=== PATIENT | female | born 1985 | race Caucasian/White ===

== ENCOUNTER 2020-05-08 12:21 | Outpatient (REF) | payer SELFPAY | END 2020-05-08 12:22 | disposition home or self-care (01) | LOC: HO.LAB 12:21 | PROVIDERS: PCP Internal Medicine; Visit Provider Internal Medicine | DX: Z20.828 Contact with and (suspected) exposure to other viral communicable diseases (principal) | CPT/HCPCS: C9803; U0003 ==

== ENCOUNTER 2022-07-31 10:55 | Outpatient (REF) | payer OTHER, SELFPAY ==
[2022-07-31 14:06] LABS: Hematocrit 40.2 % (37.0-47.0); Mean Corpuscular HGB Conc 32.3 g/dl (31.0-35.0); Mean Corpuscular Hemoglobin 25.2 pg (27.0-33.0); Mean Corpuscular Volume 78.1 fL (80.0-98.0); Mean Platelet Volume 8.9 fL (9.4-12.3); Platelet Count 289 X10*3/uL (160-400); Red Blood Count 5.15 X10*6/uL (4.20-5.50); Red Cell Distribution Width 13.4 % (11.0-16.0); White Blood Count 7.2 X10*3/uL (4.8-10.8)
[2022-07-31 14:37] LABS: Alanine Aminotransferase 27 U/L (0-31); Albumin Level 3.9 g/dL (3.5-5.0); Alkaline Phosphatase 86 U/L (39-117); Anion Gap 13 (12-20); Aspartate Amino Transferase 19 U/L (5-31); Bilirubin Total 0.5 mg/dL (0.0-1.0); Blood Urea Nitrogen 10 mg/dL (9-16); Calcium 8.8 mg/dL (8.4-10.2); Carbon Dioxide 25 mmol/L (22-29); Chloride 108 mmol/L (96-108); Cholesterol 182 mg/dL; Estimated Glomerular Filt Rate > 60; Glucose Fasting 98 mg/dL (60-99); HDL Cholesterol 39 mg/dL; LDL Cholesterol Calculated 129 mg/dl; Potassium 4.6 mmol/L (3.3-5.1); Sodium 141 mmol/L (135-145); Total Protein 6.5 g/dL (6.5-8.0); Triglycerides 74 mg/dL
[2022-07-31 14:55] LABS: TSH reflex Free T4 1.14 uIU/mL (0.32-4.0)
== END 2022-07-31 10:56 | disposition home or self-care (01) ==
LOC: HO.WFDLDS 10:55
PROVIDERS: Visit Provider Hospitalist
DX: Z00.00 Encounter for general adult medical examination without abnormal findings (principal); E66.01 Morbid (severe) obesity due to excess calories; R03.0 Elevated blood-pressure reading, without diagnosis of hypertension
CPT/HCPCS: 36415; 80053; 80061; 84443; 85027

== ENCOUNTER 2023-02-06 15:58 | Outpatient (AMB) | payer OTHER, SELFPAY ==
[2023-02-06 16:06] VITALS: BP 114/60; PULSE 86; RESP 12; TEMP 36.4; O2SAT 99; BMI 41.9
--- NOTE | 2023-02-06 16:06 | A.OFFPC_ITS ---
Vital Signs 02/06/23 16:06 Height 5 ft 6 in Weight 259 lb 6 oz BMI 41.9 BP 114/60 Blood Pressure Location Rt brachial Position Sitting Respiration 12 Pulse 86 Pulse Source Pulse Oximeter Temp 97.5 F Temp Source Temporal Artery Scan Pulse Oximetry (%) 99 Oxygen Delivery Method Room Air Intake Visit Reasons: f/u for concerns, per Mitzi Cazares Intake Note: Patient is here for a follow up for concerns. Patient was last seen by Mitzi Cazares in July of 2022. Patient states that this follow-up is for an extensive exam. Patient states that she would like to check her thyroid due to thyroid disease running in family and her assuming she may have some symptoms for the disease as well. Patient states she been fatigued, its been harder for her to lose weight now, patient states that she also feels like there is a lump in her throat and sometimes has difficulties swallowing. Patient states she has been experiencing pain in her low abdomen and it been going on for a month. Patient states it almost feels like pressure. Accordion Tuner Required: No Accompanied by: Self / Same As Patient Allergies No Known Allergies [No Known Allergies*] Allergy (Verified 02/06/23 16:27) Medication List - Last Reconciled 02/06/23 by Jadon Redding CNP No Known Home Meds Tobacco use date assessed: 02/06/23 Dental Screening Dental Screen Date: 02/06/23 Did you have a dental visit in the last 12 months?: Yes Did you have a dental problem in the last 6 months where you did not have access to dental care?: No Was dental information given to patient?: Patient has dentist HPI HPI Comments History of Present Illness Details 37-year-old female presents c/o fatigue and abdominal pain. She reports fatigue for the past several months and difficulty losing weight. She states she has been exercising at the gym daily for the past 2 months and has not lose weight. She reports family history of thyroid disease on her mother's side and request thyroid labs. She also reports intermittent daily lower abdominal pain with associated soft to watery stool for the past 1 month. She describes the pain as pressure. No constipation, no fever, chills, or body aches. She admits to eating healthy, including fruits, vegetables, and fiber. She states she is sexually active, in a monogamous relationship, and practices safe sex. She denies feeling anxious or depressed. [facility] Medical History (Updated 02/06/23 @ 16:58 by Jadon Redding CNP) No pertinent past medical history Surgical History H/O removal of cyst History of cholecystectomy Family History Maternal Grandmother Thyroid disorder Brother Thyroid disorder Maternal Aunt Thyroid disorder Maternal Aunt Thyroid disorder Maternal Aunt Thyroid disorder Social History Housing: House Alcohol intake: current Patient Tobacco Use Status: Never used Tobacco e-Cigarette/Vaping Use: Never Used Current occupational status: employed Current occupation: [employer] [place] Cognitive needs: No Hearing needs: No Vision needs: No Questionnaire Thrive Questionnaire Date Thrive assessed: 07/31/22 Review of Systems Const Details: Const Denies chills, Reports fatigue, Denies fever(s), Denies headache(s) and Denies weakness ENT Denies dizziness and Denies headache(s) Card Denies chest pain, Denies lightheadedness, Denies dyspnea and Denies other (Palpitations) Resp Denies cough, Denies dyspnea, Denies wheezing and Denies other ( shortness of breath) GI Reports abdominal pain, Denies melena, Denies hematochezia, Reports in bowel habits, Denies dyspepsia, Denies nausea, and Denies vomiting Denies hematuria and Denies dysuria Musc Denies abnormal gait, Denies myalgias, Denies arthralgias, Denies numbness and Denies tingling Skin/Breast Denies rash, Denies unusual bruising and Denies wounds Neuro Denies abnormal gait, Denies dizziness, Denies headache(s), Denies memory loss, Denies numbness, Denies Sensory deficit (Neuro), Denies tingling and Denies weakness Psych Denies anxiety, Denies depression, Denies memory loss Endo Denies cold intolerance, Reports fatigue, Denies heat intolerance, Denies polydipsia and Denies polyuria Aller/Immun Denies wheezing Physical exam (Primary Care) Vital Signs: Last Vital Signs Temp 97.5 F 02/06/23 16:06 Pulse 86 02/06/23 16:06 Resp 12 02/06/23 16:06 BP 114/60 02/06/23 16:06 Pulse Ox 99 02/06/23 16:06 Oxygen Delivery Method Room Air 02/06/23 16:06 BMI result Body Mass Index 41.9 Tobacco/Smoking Status: Tobacco use Status Tobacco use date assessed 02/06/23 02/06/23 16:18 Patient Tobacco Use Status Never used Tobacco 02/06/23 16:06 e-Cigarette/Vaping Use Never Used 02/06/23 16:06 Thrive Assessment: Date of Thrive Assessment Date Thrive assessed 07/31/22 02/06/23 16:06 Const Other: General: no acute distress and well developed Nutritional Appearance: well nourished Orientation/consciousness: patient oriented x3 HENMT Head: Yes normocephalic and Yes atraumatic Eyes General: appearance normal, both eyes and all related structures Pupils: Equal, round and reactive pupils present EOM: EOMs intact bilaterally Resp Effort & Inspection: normal respiratory effort Auscultation: clear to auscultation bilaterally Cardio Rate: regular rate Rhythm: regular rhythm Heart sounds: S1 normal heart sound present, S2 normal heart sound present, no gallops, no murmurs and no rubs GI Palpation (GI): No Abdominal aortic bruit present, Soft to palpation, tenderness to lower abdomen and suprapubic region, No hepatosplenomegaly present and No Rebound tenderness present Auscultation: normal bowel sounds General: Yes no CVA tenderness Back/Spine/Pelvis Back: no CVA tenderness Cervical Spine: cervical ROM normal and No Cervical spine tenderness Thoracic/Lumbar Spine: thoraco-lumbar ROM normal, No pain with thoraco-lumbar ROM, No thoracic spinal tenderness and No lumbar spinal tenderness Extrem General: Yes normal to inspection, No edema and No calf tenderness Skin General: warm and dry. Normal skin color. Normal skin turgor Lesions: no lesions Rashes: no rashes Trauma: no lacerations or abrasions Wounds: no wounds Nails: normal Neuro General: patient oriented x3, gait normal and no focal neuro deficit Cranial nerves: Yes Equal, round and reactive pupils present Cognition (Neuro): normal cognition Gait exam (Neuro): Normal gait present Sensory Exam: No Sensory deficit (Neuro) Psych Appearance: grossly normal Affect: normal affect Attitude: cooperative Thought process: Normal thought process present Assessment and Plan Assessment & Plan (1) Fatigue: Code(s): R53.83 - Other fatigue Plan: She reports fatigue for the past several months and been unable to lose weight She denies depression and anxiety Will check CBC, TSH, and electrolytes level Will review lab results and make changes to her care plan if warranted Routine exercise encouraged Follow-up with worsening or new symptoms Verbalized understanding and agreed with treatment plan. (2) Abdominal pain: Code(s): R10.9 - Unspecified abdominal pain Plan: Reports intermittent daily lower abdominal pain with associated soft to watery stool for the past 1 month. She describes the pain as pressure. No constipation, no fever, chills, or body aches. She admits to eating healthy. Tenderness to lower abdomen and suprapubic region May be related to diet such as lactose, stress, or IBS Metamucil ordered. Take as prescribed Referred to GI Urinalysis ordered to rule out UTI Return with worsening or new symptoms Verbalized understanding and agreed with treatment plan. (3) Diarrhea: Code(s): R19.7 - Diarrhea, unspecified Plan: As above (4) Morbid obesity: Code(s): E66.01 - Morbid (severe) obesity due to excess calories Plan: She currently weighs 259 lb, BMI is 41.9 She states she has been unable to lose weight despite exercising and eating healthy Referred to dietitian/nutrition and weight management Routine exercise and healthy diet encouraged Return with symptoms or concerns Verbalized understanding and agreed with treatment plan. Orders: Orders TSH reflex Free T4 Today R10.9 - Unspecified abdominal pain, R53.83 - Other fatigue UA CC w/rflx Micro + Cult Today R10.9 - Unspecified abdominal pain, R53.83 - Other fatigue Complete Blood Count Auto Diff Today R10.9 - Unspecified abdominal pain, R53.83 - Other fatigue Comprehensive [place]. Panel Fast Today R10.9 - Unspecified abdominal pain, R53.83 - Other fatigue Vitamin D 25-OH Total Today R10.9 - Unspecified abdominal pain, R53.83 - Other fatigue Referrals Medical Weight Management Referral E66.01 - Morbid (severe) obesity due to excess calories Apartment Coordinator Nutrition Referral E66.01 - Morbid (severe) obesity due to excess calories Gastroenterology Referral R10.9 - Unspecified abdominal pain, R19.7 - Diarrhea, unspecified Medications: New psyllium husk (Metamucil) mix into at least 8 oz of water or juice before administering 1 tbsp PO DAILY 660 grams 0RF Coding Level of Care Code Est Pt Level 3 (05219) Diagnoses Fatigue R53.83 Abdominal pain R10.9 Diarrhea R19.7 Morbid obesity E66.01
== END 2023-02-06 16:55 ==
PROVIDERS: PCP Nurse Practitioner Family; Visit Provider Nurse Practitioner Family
DX: R10.9 Unspecified abdominal pain (principal); R53.83 Other fatigue; E66.01 Morbid (severe) obesity due to excess calories; Z68.41 Body mass index [BMI] 40.0-44.9, adult; R19.7 Diarrhea, unspecified
CPT/HCPCS: 99213

== ENCOUNTER 2023-02-10 17:49 | Emergency (ER) | payer OTHER, SELFPAY ==
--- NOTE | ~2023-02-10 | XR_ITS ---
EXAMINATION: XR SOFT TISSUE NECK CLINICAL INDICATION: Foreign body sensation in throat. COMPARISON: None available. TECHNIQUE: 2 views of the soft tissue neck were obtained. FINDINGS: Soft tissue films of the neck demonstrate a normal larynx, pharynx and upper trachea. No soft tissue swelling or opaque foreign body is demonstrated. XR/XR soft tissue neck IMPRESSION: Unremarkable examination.
[2023-02-10 18:48] VITALS: BP 140/100; PULSE 65; RESP 18; TEMP 36.5; O2SAT 99; BMI 41.2
--- NOTE | 2023-02-10 18:51 | ED_ITS ---
HPI - General Adult General Chief complaint: General Medical Stated complaint: ?Lump in throat Time Seen by Provider: 02/10/23 20:08 Source: patient Mode of arrival: ambulatory Limitations: no limitations History of Present Illness HPI narrative: 37-year-old female presents to the ED for chronic sensation of lump in throat after swallowing food and drinking liquids. Patieint feels like she is having incomplete digesstion or swallowing. patient feels like food is regurging. Patient denies any neck swelling, fever, chills, mass on neck, weight loss, or night sweats. Patient denies any abdominal pain, chest pain, shortness of breath, nausea, vomiting, drooling, change in voice, weight loss, or weight gain. Related Data Previous Rx's Medication Instructions Recorded psyllium husk 3.4 gram/5.4 gram 1 tbsp PO DAILY #660 grams 02/06/23 oral powder (Metamucil) Allergies Allergy/AdvReac Type Severity Reaction Status Date / Time No Known Allergies Allergy Verified 02/10/23 18:47 [No Known Allergies*] Review of Systems Review of Systems: Lump in throat for 7 months Yes all other systems are reviewed and are negative [facility] Past Medical History Medical History (Updated 02/11/23 @ 11:06 by Jadon Redding CNP) No pertinent past medical history Surgical History H/O removal of cyst History of cholecystectomy Family History Family History Maternal Grandmother Thyroid disorder Brother Thyroid disorder Maternal Aunt Thyroid disorder Maternal Aunt Thyroid disorder Maternal Aunt Thyroid disorder Social History Social History Housing: House Alcohol intake: current Patient Tobacco Use Status: Never used Tobacco e-Cigarette/Vaping Use: Never Used Current occupational status: employed Current occupation: [employer] [place] Cognitive needs: No Hearing needs: No Vision needs: No Physical Exam ED Vital Signs: Vital Signs - 24 hr 02/10/23 18:48 Temperature 97.7 F Pulse Rate 65 Respiratory Rate 18 Blood Pressure 140/100 H Pulse Oximetry 99 Oxygen Delivery Method Room Air BMI result Body Mass Index 41.2 Const General: cooperative, healthy appearing, comfortable, no acute distress, well developed, alert, awake and Physically active Orientation/consciousness: oriented to person, oriented to place and patient oriented x3 HENNJ Head: Yes normal to inspection, Yes No palpable skull fracture present, Yes normocephalic and Yes atraumatic Throat: Yes posterior oropharynx normal, Yes tonsils normal and Yes uvula midline Eyes Other: Negative for drooling. Negative for neck swelling. Negative for lymphadenopathy. Negative for supraclavicular mass or umbilical mass. General: appearance normal, both eyes and all related structures Neck Other: Negative for any neck swelling. Neck: Yes normal visual inspection, Yes full ROM, Yes no lymphadenopathy, Yes no meningeal signs, Yes trachea midline, Yes supple, No anterior neck swelling and No tender Chest Chest palpation & inspection: normal inspection of the chest and normal palpation of entire chest wall Resp Effort & Inspection: normal respiratory effort and able to speak in complete sentences Auscultation: clear to auscultation bilaterally Cardio Jugular venous distension: no JVD Heart sounds: S1 normal heart sound present and S2 normal heart sound present GI Inspection: Yes normal to inspection Palpation (GI): Soft to palpation, not firm, nontender, no guarding and not rigid General: No CVA tenderness and Yes no CVA tenderness Back/Spine/Pelvis Back: no CVA tenderness, No CVA tenderness and No back tenderness Skin General skin exam: no rashes or lesions noted, elasticity normal and turgor normal Neuro General: oriented to person, oriented to place, patient oriented x3, gait normal, tone normal, moves all extremities, Normal light touch and pain sensation, no meningeal signs, no focal motor deficits, CN's II-XI intact bilaterally and normal sensation to monofilament Extrem General: Yes normal to inspection and Yes full ROM Psych Appearance: grossly normal, well kempt and not disheveled Course Course Course Narrative: This is an RME: Additional HPI, ROS, PE not included below will be deferred to primary provider. 37-year-old female presents with difficulty swallowing solids and liquids, started to swell solids, this is been going on for months. Seen by PCP who reassured her that she was fine however did not do any imaging. Medical Decision Making Medical Decision Making MDM Narrative: 37-year-old female presents to ED for sensation of lump in throat after eating and so/swallowing food/liquids for at least 6 months. Patient denies any drooling, change in voice, chest pain, shortness of breath, mass on neck, weight loss, fever, chills, chest pain, shortness of breath, abdominal pain, nausea, vomiting, or night sweats. Patient denies any weight loss. Physical exam n egative for cervical or other lymphadenopathy. Patient speaking in full sentences and negative for drooling, change in voice, choking, nausea, vomiting. Negative for signs of food bolus. Sounds like indigestion or patient may have some esophageal motility issues. Patient was explained signs of esophageal motility issues and told to follow-up with gastroenterology. Patient also perform a follow-up with ENT. PIT provider ordered soft-tissue next x-ray which was more Differential Diagnosis Differential Diagnoses: The differential diagnosis associated with the presentation includes (GERD, esophageal motility issues, achalasia, food bolus, ) External Record Review External record reviewed: Outpatient record and Other (Prior visit) Tests considered The following testing was considered but not selected: CT scan Discharge Plan Discharge Clinical Impression: Indigestion, Sore throat Patient Disposition: Home, Self-Care Instructions: Pharyngitis (ED), Indigestion (ED) Additional Instructions: History indicates possible esophageal issues. You will need to follow-up with extruder operator for further re-evaluation. Also you need to follow-up with ENT for any possible larynx issues. Return to the ED immediately for any drooling, change in voice, chest pain, shortness of breath, neck swelling, mass or neck, weight loss, night sweats, fever, chills, inability tolerate solid food/liquid, or any other concerning symptoms. Prescriptions: No Action Metamucil 3.4 gram/5.4 gram powder 1 tbsp PO DAILY Qty: 660 0RF Rx Instructions: mix into at least 8 oz of water or juice before administering Referrals: [facility] [place] Gastro[facility]ology Services [Provider Group] (Indigestion. Possible esophageal motility issues.) Juventino Ramirez [Physician] - (Chronic throat issue for 6 months) Interventions: ED Discharge Assessment Last Done: 02/10/23 21:24 Discharge Date/Time: 02/10/23 21:25 Print Language: Tristanian
== END 2023-02-10 21:25 | disposition home or self-care (01) ==
PROVIDERS: Emergency Provider Emergency Medicine; PCP Nurse Practitioner Family
DX: J02.9 Acute pharyngitis, unspecified (principal); K30 Functional dyspepsia; E66.9 Obesity, unspecified; Z68.41 Body mass index [BMI] 40.0-44.9, adult
CPT/HCPCS: 70360; 99282; 99283

== ENCOUNTER 2023-02-11 08:49 | Outpatient (REF) | payer OTHER, SELFPAY ==
[2023-02-11 10:21] LABS: MANUAL DIFF FLAG NO
[2023-02-11 10:25] LABS: Basophils Percent Auto 0.4 % (0-2); Eosinophils Absolute Auto 0.1 X10*3/uL (0.0-0.4); Eosinophils Percent Auto 2.3 % (0-4); Hematocrit 41.6 % (37.0-47.0); Hemoglobin 13.4 g/dl (12.0-16.0); Imm Gran Abs Auto 0.02 X10*3/uL (0.00-0.03); Imm Gran Pct Auto 0.4 % (0.0-0.4); Lymphocytes Absolute Auto 1.9 X10*3/uL (1.2-4.9); Lymphocytes Percent Auto 33.9 % (20-40); Mean Corpuscular HGB Conc 32.2 g/dl (31.0-35.0); Mean Corpuscular Hemoglobin 25.7 pg (27.0-33.0); Mean Corpuscular Volume 79.8 fL (80.0-98.0); Monocytes Absolute Auto 0.6 X10*3/uL (0.1-1.2); Monocytes Percent Auto 10.5 % (2-11); Neutrophils Percent Auto 52.5 % (45-73); Platelet Count 261 X10*3/uL (160-400); Red Blood Count 5.21 X10*6/uL (4.20-5.50); Red Cell Distribution Width 12.8 % (11.0-16.0); White Blood Count 5.7 X10*3/uL (4.8-10.8)
[2023-02-11 10:27] LABS: Appearance Urine Clear; Color Urine Yellow; Glucose Urine UA Negative (Negative); Leukocyte Esterase Urine Small (1+) (Negative); Nitrite Urine Negative (Negative); PH 6.5 (5.0-9.0); Specific Gravity - Urine 1.025 (1.005-1.025); UMIC TRIGGER UACC YES; Urine Blood Negative (Negative); Urine Ketones Negative (Negative); Urine Protein Negative (Neg-Trace)
[2023-02-11 10:30] LABS: Bacteria Urine 1+ (None Seen); Hyaline Casts Urine 0-2 /LPF (0-2); UACC Culture Trigger YES
[2023-02-11 10:51] LABS: Alanine Aminotransferase 23 U/L (0-31); Albumin Level 3.9 g/dL (3.5-5.0); Alkaline Phosphatase 72 U/L (39-117); Anion Gap 12 (12-20); Aspartate Amino Transferase 19 U/L (5-31); Bilirubin Total 0.4 mg/dL (0.0-1.0); Blood Urea Nitrogen 11 mg/dL (9-16); Calcium 8.8 mg/dL (8.4-10.2); Carbon Dioxide 25 mmol/L (22-29); Chloride 107 mmol/L (96-108); Estimated Glomerular Filt Rate > 60; Glucose Fasting 111 mg/dL (60-99); Potassium 4.3 mmol/L (3.3-5.1); Sodium 140 mmol/L (135-145); Total Protein 6.9 g/dL (6.5-8.0)
[2023-02-11 11:00] LABS: TSH reflex Free T4 1.19 uIU/mL (0.32-4.0); Vitamin D 25-OH Total 36.4 ng/mL (>30)
== END 2023-02-11 08:50 | disposition home or self-care (01) ==
LOC: HO.10HDL 08:49
PROVIDERS: Visit Provider Nurse Practitioner Family
DX: R10.9 Unspecified abdominal pain (principal); R53.83 Other fatigue
CPT/HCPCS: 36415; 80053; 81001; 82306; 84443; 85025; 87086

== ENCOUNTER 2023-03-04 08:15 | Outpatient (REF) | payer OTHER, SELFPAY ==
[2023-03-04 09:30] LABS: Appearance Urine Clear; Color Urine Yellow; Glucose Urine UA Negative (Negative); Leukocyte Esterase Urine Small (1+) (Negative); Nitrite Urine Negative (Negative); PH 5.5 (5.0-9.0); Specific Gravity - Urine 1.025 (1.005-1.025); UMIC TRIGGER UACC YES; Urine Blood Moderate (2+) (Negative); Urine Ketones Negative (Negative); Urine Protein Negative (Neg-Trace)
[2023-03-04 09:41] LABS: Glucose Fasting 118 mg/dL (60-99)
[2023-03-04 10:02] LABS: Bacteria Urine 2+ (None Seen); Hyaline Casts Urine 0-2 /LPF (0-2); RBC Urine 0-2 /HPF (0-2); UACC Culture Trigger YES; WBC Urine 0-5 /HPF (0-5)
== END 2023-03-04 08:16 | disposition home or self-care (01) ==
LOC: HO.10HDL 08:15
PROVIDERS: Visit Provider Nurse Practitioner Family
DX: R73.01 Impaired fasting glucose (principal); R10.9 Unspecified abdominal pain; R53.83 Other fatigue
CPT/HCPCS: 36415; 81001; 82947; 87086

== ENCOUNTER 2023-03-23 11:06 | Outpatient (AMB) | payer OTHER, SELFPAY ==
[2023-03-23 11:14] VITALS: BP 126/68; PULSE 66; RESP 12; O2SAT 99; BMI 41.2
--- NOTE | 2023-03-23 11:14 | A.OFFPC_ITS ---
Vital Signs 03/23/23 11:14 Height 5 ft 6 in Weight 255 lb BMI 41.2 BP 126/68 Blood Pressure Location Lt brachial Position Sitting Respiration 12 Pulse 66 Pulse Source Pulse Oximeter Pulse Oximetry (%) 99 Oxygen Delivery Method Room Air Intake Visit Reasons: a1c check Intake Note: Patient is here for an A1C check due to 2 high blood glucose levels. Housekeeping Assistant Required: No Accompanied by: Self / Same As Patient Allergies No Known Allergies [No Known Allergies*] Allergy (Verified 03/23/23 11:22) Tobacco use date assessed: 02/06/23 HPI HPI Comments History of Present Illness Details 37-year-old female presents for elevated fasting glucose follow-up. Recent fasting glucose has been elevated twice recently, 111 and 118. Her former PCP is BERKLEY who is no longer with the practice. Patient is also transferring care today. She has history of morbid obesity. She notes that she has been making healthy dietary choices and fasting intermittently since her her last visit with this provider. She notes she has been exercising at the gym 4-5 days weekly and walks daily. No recent weight loss. She offers no complaint and deneis acute symptoms. She has an appointment with nutrition/dietitian tomorrow. [facility] Medical History (Updated 03/23/23 @ 11:42 by Jadon Redding CNP) No pertinent past medical history Surgical History H/O removal of cyst History of cholecystectomy Family History Maternal Grandmother Thyroid disorder Brother Thyroid disorder Maternal Aunt Thyroid disorder Maternal Aunt Thyroid disorder Maternal Aunt Thyroid disorder Social History Housing: House Alcohol intake: current Patient Tobacco Use Status: Never used Tobacco e-Cigarette/Vaping Use: Never Used Current occupational status: employed Current occupation: [employer] Cognitive needs: No Hearing needs: No Vision needs: No Questionnaire Thrive Questionnaire Date Thrive assessed: 07/31/22 Review of Systems Const Details: Const Denies chills, Denies fatigue, Denies fever(s), Denies headache(s) and Denies weakness ENT Denies dizziness and Denies headache(s) Card Denies chest pain, Denies lightheadedness, Denies dyspnea and Denies other (Palpitations) Resp Denies cough, Denies dyspnea, Denies wheezing and Denies other ( shortness of breath) GI Denies abdominal pain, Denies melena, Denies hematochezia, Denies change in bowel habits, Denies dyspepsia and Denies nausea Denies hematuria and Denies dysuria Musc Denies abnormal gait, Denies myalgias, Denies arthralgias, Denies numbness and Denies tingling Skin/Breast Denies rash, Denies unusual bruising and Denies wounds Neuro Denies abnormal gait, Denies dizziness, Denies headache(s), Denies memory loss, Denies numbness, Denies Sensory deficit (Neuro), Denies tingling and Denies weakness Psych Denies anxiety, Denies depression, Denies memory loss Endo Denies cold intolerance, Denies fatigue, Denies heat intolerance, Denies polydipsia and Denies polyuria Aller/Immun Denies wheezing Physical exam (Primary Care) Vital Signs: Last Vital Signs Pulse 66 03/23/23 11:14 Resp 12 03/23/23 11:14 BP 126/68 03/23/23 11:14 Pulse Ox 99 03/23/23 11:14 Oxygen Delivery Method Room Air 03/23/23 11:14 BMI result Body Mass Index 41.2 Tobacco/Smoking Status: Tobacco use Status Tobacco use date assessed 02/06/23 03/23/23 11:21 Patient Tobacco Use Status Never used Tobacco 03/23/23 11:21 e-Cigarette/Vaping Use Never Used 03/23/23 11:21 Thrive Assessment: Date of Thrive Assessment Date Thrive assessed 07/31/22 03/23/23 11:21 Const Other: General: no acute distress and well developed Nutritional Appearance: well nourished Orientation/consciousness: patient oriented x3 HENMT Head: Yes normocephalic and Yes atraumatic Eyes General: appearance normal, both eyes and all related structures Pupils: Equal, round and reactive pupils present EOM: EOMs intact bilaterally Resp Effort & Inspection: normal respiratory effort Auscultation: clear to auscultation bilaterally Cardio Rate: regular rate Rhythm: regular rhythm Heart sounds: S1 normal heart sound present, S2 normal heart sound present, no gallops, no murmurs and no rubs GI Palpation (GI): No Abdominal aortic bruit present, Soft to palpation, nontender, No hepatosplenomegaly present and No Rebound tenderness present Auscultation: normal bowel sounds General: Yes no CVA tenderness Back/Spine/Pelvis Back: no CVA tenderness Cervical Spine: cervical ROM normal and No Cervical spine tenderness Thoracic/Lumbar Spine: thoraco-lumbar ROM normal, No pain with thoraco-lumbar ROM, No thoracic spinal tenderness and No lumbar spinal tenderness Extrem General: Yes normal to inspection, No edema and No calf tenderness Skin General: warm and dry. Normal skin color. Normal skin turgor Neuro General: patient oriented x3, gait normal and no focal neuro deficit Cranial nerves: Yes Equal, round and reactive pupils present Cognition (Neuro): normal cognition Gait exam (Neuro): Normal gait present Sensory Exam: No Sensory deficit (Neuro) Psych Appearance: grossly normal Affect: normal affect Attitude: cooperative Thought process: Normal thought process present Results AMB Hemoglobin A1c AMB Hemoglobin A1c 5.8 % Last Edit by Madonna Barakat CMA on 03/23/23 11:33 Results Reviewed Results Reviewed: Laboratory Last Values Hgb A1c (Clinic) 5.8 % (4.0-6.0) 03/23/23 11:31 Assessment and Plan Assessment & Plan (1) Pre-diabetes: Code(s): R73.03 - Prediabetes Plan: Her fasting glucose has been elevated twice recently, 111 and 118 A1c today is 5.8%, indicates prediabetes She denies family history of diabetes ADA diet and routine exercise encouraged Follow-up with dietitian/automatic head sawyer as planned Return in 4 months for an extended physical exam or sooner with symptoms or concerns Verbalized understanding and agreed with treatment plan. Orders: Orders AMB Hemoglobin A1c Today Z13.9 - Encounter for screening, unspecified Coding Level of Care Code Est Pt Level 3 (55842) Diagnoses Pre-diabetes R73.03
== END 2023-03-23 11:53 | disposition home or self-care (01) ==
PROVIDERS: PCP Nurse Practitioner Family; Visit Provider Nurse Practitioner Family
DX: R73.03 Prediabetes (principal)
CPT/HCPCS: 83036; 99213

== ENCOUNTER 2023-03-24 09:49 | Outpatient (AMB) | payer OTHER, SELFPAY ==
[2023-03-24 10:03] VITALS: BMI 41.0
--- NOTE | 2023-03-24 10:03 | MHC.AMNUTRGE ---
Intake VS Expanded 03/24/23 10:03 03/30/23 20:53 Height 5 ft 6 in 5 ft 6 in Weight 253 lb 15.56 oz 254 lb BMI 41.0 41.0 Intake Visit Reasons: Morbid Allergies No Known Allergies [No Known Allergies*] Allergy (Verified 03/23/23 11:22) HPI Nutrition Presentation Details Pt presents MNT for morbid obesity. The patient was referred by Dr. Mai Pt reports participating in physical activity daily : 45-60 min combination aerobic/anaerobic exercises Typical meal intake first meal 12 : tuna boiled eggs/kale and spinach on a wrap , yogurt or fruit , water , coffee black with 1 tbsp of sugar 5pm : mixed nuts and cheese , water 7pm : healthy plate method style, Reports consuming 32 oz water /d ETOH- SMoking- WNQ-Pjxzmwa-Ud.Jeor Equation Height 5 ft 6 in Weight 254 lb Resting Metabolic Rate 1865.52 Calculated Activity Level Sedentary Calories Needed to Maintain Weight 2238.62 Diagnosis Nutrition problem #1 excessive energy intake As related to (etiology) #1 diagnosis As evidenced by (sign/symptom) #1 high BMI (41 on 03/2023) Monitoring/Goals Nutrition problem monitoring level of knowledge/skill and weight Nutrition goal/outcome list 3 CHO foods and list 3 high fiber foods Most Recent Diabetes Results: Cholesterol 182 mg/dL 07/31/22 HDL Cholesterol 39 mg/dL 07/31/22 Triglycerides 74 mg/dL 07/31/22 Creatinine 0.96 mg/dL (0.5-1.4) 02/11/23 Blood Urea Nitrogen 11 mg/dL (9-16) 02/11/23 Sodium 140 mmol/L (135-145) 02/11/23 Potassium 4.3 mmol/L (3.3-5.1) 02/11/23 Chloride 107 mmol/L (96-108) 02/11/23 Carbon Dioxide 25 mmol/L (22-29) 02/11/23 Calcium 8.8 mg/dL (8.4-10.2) 02/11/23 AST 19 U/L (5-31) 02/11/23 ALT 23 U/L (0-31) 02/11/23 Total Protein 6.9 g/dL (6.5-8.0) 02/11/23 Albumin 3.9 g/dL (3.5-5.0) 02/11/23 [facility] Medical History (Updated 03/23/23 @ 11:42 by Jadon Redding CNP) No pertinent past medical history Surgical History H/O removal of cyst History of cholecystectomy Family History Maternal Grandmother Thyroid disorder Brother Thyroid disorder Maternal Aunt Thyroid disorder Maternal Aunt Thyroid disorder Maternal Aunt Thyroid disorder Social History Housing: House Alcohol intake: current Patient Tobacco Use Status: Never used Tobacco e-Cigarette/Vaping Use: Never Used Current occupational status: employed Current occupation: [employer] [place] Cognitive needs: No Hearing needs: No Vision needs: No Assessment & Plan Assessment & Plan (1) Morbid obesity: Code(s): E66.01 - Morbid (severe) obesity due to excess calories Plan: wt: 115 kg Est kcal needs as per MSJ: 2100 (40% carb, 30% protein/fat) Est fluid needs as per 30 ml/d: 3400 Est prot per day as per 1 g/kg bw: 115 Recommend fiber intake : 8-10 g per day and gradually increase to 25-28 g per day for women and 35-38 g for men or as tolerated Recommend sodium intake per day : less than 2000 mg Educated patient on: ( R = reviewed V = verbalizes understanding N/R = needs review N/A = not applicable Food sources of carbohydrate, adequate serving sizes and its role in various health conditions: R Differences between complex carbohydrates a simple carbohydrates, role of fiber in diet: R Differences between types of fats and role in diet (mono on saturated fat fatty acids, saturated fatty acids, trans fats): R Food sources of sodium in salt and healthy modifications for heart health in kidney health: R Vitamins and minerals: R Healthy plate method concept: R Physical activity: Benefits a precaution: R Mindful eating strategies Patient Instructions: Practice mindful eating Modify portion of starches at dinner and reduce total carb to 60 g in a consistent manner keep a food record and bring to next follow up Coding Level of Care Code Nutr Indiv Intake (19993) Diagnoses Morbid obesity E66.01 Time Spent (min) 40
[2023-03-30 20:53] VITALS: BMI 41.0
== END 2023-03-24 10:42 | disposition home or self-care (01) ==
PROVIDERS: PCP Nurse Practitioner Family; Visit Provider Dietitian, Registered
DX: E66.01 Morbid (severe) obesity due to excess calories (principal)

== ENCOUNTER → 2023-03-24 09:49 | Outpatient (BNVA) | payer OTHER, SELFPAY | PROVIDERS: PCP Nurse Practitioner Family; Visit Provider Dietitian, Registered | DX: E66.01 Morbid (severe) obesity due to excess calories (principal); Z68.41 Body mass index [BMI] 40.0-44.9, adult; Z71.3 Dietary counseling and surveillance; Z90.49 Acquired absence of other specified parts of digestive tract; Z83.49 Family history of other endocrine, nutritional and metabolic diseases | CPT/HCPCS: 97802 ==

== ENCOUNTER 2023-04-08 11:49 | Outpatient (AMB) | payer OTHER, SELFPAY ==
--- NOTE | 2023-04-08 12:09 | MHC.OFFVIS ---
Intake Vital Signs 04/08/23 12:12 Height 5 ft 6 in Weight 250 lb BMI 40.3 BP 131/74 Blood Pressure Location Lt brachial Position Sitting Pulse 75 Intake Visit Reasons: abdominal pain, diarrhea Intake Note: Patient new consult for abdominal pain and diarrhea. Patient cc: abdominal pain with irregular BM and bloating, gassy, some diarrhea and some dysphagia. 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 Appetite good- had an episode of choking couple - globus she says is not anxious She does have a busy schedule No nausea, vomiting, hematemesis, hematochezia fever chills PFSH Medical History (Updated 04/14/23 @ 10:48 by Tania Zamorano PA-C) No pertinent past medical history Surgical History H/O removal of cyst History of cholecystectomy Family History Maternal Grandmother Thyroid disorder Brother Thyroid disorder Maternal Aunt Thyroid disorder Maternal Aunt Thyroid disorder Maternal Aunt Thyroid disorder Social History Housing: House Alcohol intake: current Patient Tobacco Use Status: Never used Tobacco e-Cigarette/Vaping Use: Never Used Current occupational status: employed Current occupation: [employer], [place], [place] Cognitive needs: No Hearing needs: No Vision needs: No Review of Systems Const All systems reviewed & are unremarkable except as noted in HPI and below Card Denies chest pain and Denies dyspnea Resp Denies dyspnea GI Reports diarrhea Physical Exam Vital Signs: Last Vital Signs Pulse 75 04/08/23 12:12 BP 131/74 04/08/23 12:12 BMI result Body Mass Index 40.3 Const General: cooperative, healthy appearing and comfortable Orientation/consciousness: patient oriented x3 Limitations: no limitations Eyes Sclerae: sclerae normal Resp Effort & Inspection: normal respiratory effort and able to speak in complete sentences Auscultation: clear to auscultation bilaterally, no rales, no rhonchi and no wheezes Cardio Rate: regular rate Rhythm: regular rhythm Heart sounds: S1 normal heart sound present and S2 normal heart sound present GI Palpation (GI): Soft to palpation and nontender Auscultation: normal bowel sounds Skin General skin exam: no rashes or lesions noted Neuro General: patient oriented x3 Extrem General: Yes full ROM Psych Appearance: grossly normal and well kempt Speech and movement: Clear speech present Affect: Anxious affect present Thought content: Normal thought content present Results Reviewed Results Reviewed: no anemia, nrml tsh- Assessment & Plan Assessment & Plan (1) Diarrhea: Code(s): R19.7 - Diarrhea, unspecified (2) Abdominal pain: Comment: Pleasant 37-year-old chronic diarrhea abdominal pain, somewhat vague, may likely have functional component Not appreciate a exam Will further evaluate Trial dicyclomine Code(s): R10.9 - Unspecified abdominal pain Plan: And further evaluated Plan CT IV r/o underlying causes include neoplasm (less likely) Labs to include sed rate CRP and HP Dicyclomine-10 mg up to t.i.d. Orders: Orders Erythrocyte Sedimentation Rate 04/08/23 R19.7 - Diarrhea, unspecified CT abdomen pelvis w IV con 04/08/23 R10.9 - Unspecified abdominal pain, R19.7 - Diarrhea, unspecified C Reactive Protein 04/08/23 R10.9 - Unspecified abdominal pain, R19.7 - Diarrhea, unspecified H pylori Ag Stool 04/08/23 A04.8 - Other specified bacterial intestinal infections Medications: New dicyclomine 10 mg PO TID PRN 60 caps 0RF abdominal pain barium sulfate 2%(w/v) (Readi-Cat 2) 450 mL PO DIRECTED 1 day 900 mL 0RF Patient Instructions: CT IV r/o underlying causes include neoplasm (less likely) Labs to include sed rate CRP and HP Dicyclomine 10 mg up to t.i.d. Continue to monitor symptoms Coding Level of Care Code New Pt Level 4 (91450) Diagnoses Diarrhea R19.7 Abdominal pain R10.9 Time Spent (min) 35
[2023-04-08 12:12] VITALS: BP 131/74; PULSE 75; BMI 40.3
== END 2023-04-08 14:12 | disposition home or self-care (01) ==
PROVIDERS: PCP Nurse Practitioner Family; Visit Provider Physician Assistant
DX: R19.7 Diarrhea, unspecified (principal); R10.9 Unspecified abdominal pain
CPT/HCPCS: 99204

== ENCOUNTER → 2023-04-08 11:49 | Outpatient (BNVA) | payer OTHER, SELFPAY | PROVIDERS: PCP Nurse Practitioner Family; Visit Provider Physician Assistant ==

== ENCOUNTER 2023-05-25 13:15 | Outpatient (REF) | payer OTHER, SELFPAY ==
--- NOTE | ~2023-05-25 | CT_ITS ---
EXAMINATION: CT ABDOMEN AND PELVIS WITH CONTRAST CLINICAL INFORMATION: Diarrhea COMPARISON: None available. TECHNIQUE: Multidetector volumetric images were obtained from the superior aspect of the liver through the pubic symphysis following administration 85 mL of Omnipaque 350 intravenous contrast. Sagittal and coronal reformatted images were obtained on the technologist's workstation. Oral contrast: No This CT examination was performed using dose optimization techniques as appropriate, variously including the following: *Automated exposure control *Adjustment of mA and/or kV according to patient size (this includes techniques or standardized protocols for targeted exams where dose is matched to indication/reason for exam; i.e. extremities or head) *Use of iterative reconstruction technique DLP: 740. mGy-cm FINDINGS: MILL TENDER WASHING: Nonobstructive bowel pattern. Cholecystectomy clips. LUNG BASES: Scattered atelectasis. Heart size within normal limits. No pericardial effusion. LIVER, GALLBLADDER, AND BILIARY TREE: The liver is normal in size, shape, and attenuation. No focal hepatic lesion or biliary ductal dilatation is present. The gallbladder has been surgically removed. PANCREAS: Unremarkable. SPLEEN: Unremarkable. ADRENAL GLANDS: Unremarkable. KIDNEYS AND URETERS: The kidneys are normal in size, shape, and attenuation. No hydronephrosis, hydroureter, or calculi seen. No perinephric stranding. BLADDER: Unremarkable. GASTROINTESTINAL TRACT: Small hiatal hernia. Well distended unremarkable stomach. Nonobstructive bowel pattern. Unremarkable appendix. Relatively decompressed descending colon likely accounting for wall thickening. Rectum contains fluid and contrast. ABDOMINAL WALL: Small fat filled umbilical hernia. LYMPH NODES: Normal. VASCULAR: Unremarkable. PELVIC VISCERA: IUD. Likely bilateral physiologic follicles. Phleboliths. OSSEOUS STRUCTURES: No suspicious osseous lesions. Likely benign femoral bone islands. CT/CT abdomen pelvis w IV con IMPRESSION: Rectal fluid, likely diarrhea. No acute intra-abdominal pathology recognized. Rectal Fleischner guidelines were followed.
[2023-05-25] MEDS: iohexoL 350 MG/ML 75 ML INFUS..BTL 85 ML IV (16:22)
[2023-05-25] MEDS: Barium Sulfate Oral (Berry) 450 ML ORAL.SUSP 900 ML PO (16:23)
== END 2023-05-25 13:16 | disposition home or self-care (01) ==
LOC: HO.CT 13:15
PROVIDERS: Visit Provider Physician Assistant
DX: R10.9 Unspecified abdominal pain (principal); R19.7 Diarrhea, unspecified
CPT/HCPCS: 74177; Q9967

== ENCOUNTER 2023-06-16 14:27 | Outpatient (AMB) | payer OTHER, SELFPAY ==
[2023-06-16 14:32] VITALS: BMI 40.5
--- NOTE | 2023-06-16 14:32 | MHC.AMNUTRGE ---
Intake VS Expanded 06/16/23 14:32 Height 5 ft 6 in Weight 250 lb 14.177 oz BMI 40.5 Intake Visit Reasons: Obesity/LVM Allergies No Known Allergies [No Known Allergies*] Allergy (Verified 04/08/23 12:09) HPI Nutrition Presentation Details Pt presents for MNT for obesity Patient reports working on meal planning -meal preps Keeping hydrated: 32 oz jug of water twice a day Reports having episodes of diarrhea and reports this may be related to dairy intake Most Recent Diabetes Results: Creatinine 0.96 mg/dL (0.5-1.4) 02/11/23 Blood Urea Nitrogen 11 mg/dL (9-16) 02/11/23 Sodium 140 mmol/L (135-145) 02/11/23 Potassium 4.3 mmol/L (3.3-5.1) 02/11/23 Chloride 107 mmol/L (96-108) 02/11/23 Carbon Dioxide 25 mmol/L (22-29) 02/11/23 Calcium 8.8 mg/dL (8.4-10.2) 02/11/23 AST 19 U/L (5-31) 02/11/23 ALT 23 U/L (0-31) 02/11/23 Total Protein 6.9 g/dL (6.5-8.0) 02/11/23 Albumin 3.9 g/dL (3.5-5.0) 02/11/23 COUNTS INCLUDE 234 BEDS AT THE [facility] Medical History (Updated 04/14/23 @ 10:48 by Tania Zamorano PA-C) No pertinent past medical history Surgical History H/O removal of cyst History of cholecystectomy Family History Maternal Grandmother Thyroid disorder Brother Thyroid disorder Maternal Aunt Thyroid disorder Maternal Aunt Thyroid disorder Maternal Aunt Thyroid disorder Social History Housing: House Alcohol intake: current Patient Tobacco Use Status: Never used Tobacco e-Cigarette/Vaping Use: Never Used Current occupational status: employed Current occupation: [employer], [place], [place] Cognitive needs: No Hearing needs: No Vision needs: No Assessment & Plan Assessment & Plan (1) Morbid obesity: Code(s): E66.01 - Morbid (severe) obesity due to excess calories Plan: wt: 115 kg, 114 kg (06/2023) Est kcal needs as per MSJ: 2100 (40% carb, 30% protein/fat) Est fluid needs as per 30 ml/d: 3400 Est prot per day as per 1 g/kg bw: 115 Recommend fiber intake : 8-10 g per day and gradually increase to 25-28 g per day for women and 35-38 g for men or as tolerated Recommend sodium intake per day : less than 2000 mg Educated patient on: ( R = reviewed V = verbalizes understanding N/R = needs review N/A = not applicable Food sources of carbohydrate, adequate serving sizes and its role in various health conditions: R Differences between complex carbohydrates a simple carbohydrates, role of fiber in diet: R Differences between types of fats and role in diet (mono on saturated fat fatty acids, saturated fatty acids, trans fats): R Food sources of sodium in salt and healthy modifications for heart health in kidney health: R Vitamins and minerals: R Healthy plate method concept: R Physical activity: Benefits a precaution: R Mindful eating strategies Patient Instructions: Continue working on meal planning, meal prep Work on reducing on highly processed foods/ foods high in salt, review food labels to assist in reducing total sodium intake, goal less than 600 mg per meal Choose nondairy vitamin-D and calcium sources of foods (related to comments of noticing GI side effects after consuming dairy Coding Level of Care Code Nutr Indiv Subseq (19943) Diagnoses Morbid obesity E66.01 Time Spent (min) 25
== END 2023-06-16 15:12 | disposition home or self-care (01) ==
PROVIDERS: PCP Nurse Practitioner Family; Visit Provider Dietitian, Registered
DX: E66.01 Morbid (severe) obesity due to excess calories (principal)

== ENCOUNTER → 2023-06-16 14:27 | Outpatient (BNVA) | payer OTHER, SELFPAY | PROVIDERS: PCP Nurse Practitioner Family; Visit Provider Dietitian, Registered | DX: E66.01 Morbid (severe) obesity due to excess calories (principal); Z68.41 Body mass index [BMI] 40.0-44.9, adult; Z71.3 Dietary counseling and surveillance | CPT/HCPCS: 97803 ==

== ENCOUNTER 2023-08-10 10:41 | Outpatient (AMB) | payer OTHER, SELFPAY ==
[2023-08-10 10:45] VITALS: BP 124/70; PULSE 71; RESP 13; TEMP 36.6; O2SAT 98; BMI 40.4
--- NOTE | 2023-08-10 10:45 | MHC.PC.OV ---
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 Accompanied by: Self / Same As Patient Allergies No Known Allergies [No Known Allergies*] Allergy (Verified 08/10/23 10:59) Medication List - Last Reconciled 08/10/23 by Jadon Redding CNP psyllium husk (Metamucil) 1 tbsp PO DAILY PRN Tobacco use date assessed: 08/10/23 Dental Screening Dental Screen Date: 08/10/23 Did you have a dental visit in the last 12 months?: Yes Did you have a dental problem in the last 6 months where you did not have access to dental care?: No Was dental information given to patient?: Patient has dentist HPI HPI Comments History of Present Illness Details 37-year-old female presents for an extended physical exam She has past medical history significant for obesity She notes that she stopped exercising for two months and resumed 2 months ago, four days weekkly. She has been making healthy dietary changes. She is followed by [facility] nutrition She notes that she has been anxious. She attributes her symptoms to the contents of the news and constantly thinking about the welfare and safety of the 15 years old son. She has been feeling anxious since her son started high school seven months ago. She denies depression. She denies SI/HI She notes that [facility] [place]: normal. She plans on scheduling an appointment with a new petrol tanker driver She has not been vaccinated from flu this season and declines the vaccine [facility] Medical History No pertinent past medical history Surgical History H/O removal of cyst History of cholecystectomy Family History Maternal Grandmother Thyroid disorder Brother Thyroid disorder Maternal Aunt Thyroid disorder Maternal Aunt Thyroid disorder Maternal Aunt Thyroid disorder Social History (Reviewed 08/10/23 @ 10:53 by RAMONA Balderrama Housing: House Alcohol intake: current Patient Tobacco Use Status: Never used Tobacco e-Cigarette/Vaping Use: Never Used service: No Current occupational status: employed Current occupation: [employer], [employer] Cognitive needs: No Hearing needs: No Vision needs: No Questionnaire PHQ-9 Over the last 2 weeks, how often have you been bothered by any of the following problems? 1. Little interest or pleasure in doing things: several days 2. Feeling down, depressed, or hopeless: not at all 3. Trouble falling or staying asleep, or sleeping too much: nearly every day 4. Feeling tired or having little energy: several days 5. Poor appetite or overeating: nearly every day 6. Feeling bad about yourself - or that you are a failure or have let yourself or your family down: not at all 7. Trouble concentrating on things, such as reading the newspaper or watching television: several days 8. Moving or speaking so slowly that other people could have noticed. Or the opposite - being so fidgety or restless that you have been moving around a lot more than usual: not at all 9. Thoughts that you would be better off or of hurting yourself in some way: not at all Total score: 9 Depression Screening Interpretation: Positive Depression Screening Done: Yes [id number] - PHQ-9 Billing: Yes Source: Developed by Drs. Sina Suh, Margareth Gardner, Jhonny Edwards and colleagues, with an educational debra from [employer]. Thrive Questionnaire Date Thrive assessed: 08/10/23 I am a: Patient What is your living situation today?: I have a steady place to live Within the past 12 months, did the food you bought not last and you didn't have the money to get more?: Never true Within the past 12 months, did you worry whether your food would run out before you got money to buy more?: Never true Do you have trouble paying for medicines?: No Do you have trouble getting transportation to medical appointments?: No Do you have trouble paying your heating and electricity bill?: No Do you have trouble taking care of your child, family member or friend?: No Do you have trouble with day-to-day activities such as bathing, preparing meals, shopping, managing finances, etc.?: No Are you currently unemployed and looking for a job?: No Are you interested in more education?: No Please select the resources that you would like help with: None Currently or been in a relationship where the following occur: no concerns reported THRIVE Score: 0 AUDIT C Alcohol Use Questionnaire (AUDIT-C) 1. How often do you have a drink containing alcohol?: Monthly or less 2. How many drinks containing alcohol do you have on a typical day when you are drinking?: 1 or 2 3. How often do you have six or more drinks on one occasion?: Never Total Score: 1 JEANNIE-7 AMB Questionnaire JEANNIE-7 Date JEANNIE - 7 assessed: 08/10/23 Feeling nervous, anxious, or on edge: 1 = Several days Not being able to stop or control worryin = Several days Worrying too much about different things: 3 = Nearly every day Trouble relaxin = Several days Being so restless that it is hard to sit still: 0 = Not at all Becoming easily annoyed or irritable: 3 = Nearly every day Feeling afraid as if something awful might happen: 3 = Nearly every day Total JEANNIE-7 score (0-4 normal; 5-9 mild; 10-14 moderate; 15-21 severe): 12 Source: Developed by Drs. Sina Suh, Margareth Gardner, Jhonny Edwards and colleagues, with an educational debra from [employer]. JEANNIE-7 Assessment Billing JEANNIE-7 Assessment Tool: JEANNIE-7 Assessment [id number] Review of Systems Const Details: Denies chills, Denies fatigue, Denies fever(s), Denies headache(s) and Denies weakness HEENT Denies change in vision, Denies dizziness, Denies headache(s), Denies hearing loss, Denies nasal congestion, Denies sinus pain, Denies sinus pressure and Denies sore throat Card Denies chest pain, Denies lightheadedness, Denies dyspnea and Denies other (palpitations) Resp Denies cough, Denies dyspnea and Denies wheezing GI Denies abdominal pain, Denies melena, Denies hematochezia, Denies change in bowel habits, Denies dyspepsia and Denies nausea Denies hematuria and Denies dysuria Musc Denies abnormal gait, Denies myalgias, Denies arthralgias, Denies numbness and Denies tingling Skin/Breast Denies rash, Denies unusual bruising and Denies wounds Neuro Denies abnormal gait, Denies dizziness, Denies headache(s), Denies memory loss, Denies numbness, Denies Sensory deficit (Neuro), Denies tingling and Denies weakness Psych Denies anxiety, Denies depression and Denies memory loss Endo Denies cold intolerance, Denies fatigue, Denies heat intolerance, Denies polydipsia and Denies polyuria Iron/Lymph Denies easy bleeding and Denies easy bruising Aller/Immun Denies wheezing Physical exam (Primary Care) Vital Signs: Last Vital Signs Temp 97.8 F 08/10/23 10:45 Pulse 71 08/10/23 10:45 Resp 13 08/10/23 10:45 BP 124/70 08/10/23 10:45 Pulse Ox 98 08/10/23 10:45 Oxygen Delivery Method Room Air 08/10/23 10:45 BMI result Body Mass Index 40.4 Tobacco/Smoking Status: Tobacco use Status Tobacco use date assessed 08/10/23 08/10/23 10:56 Patient Tobacco Use Status Never used Tobacco 08/10/23 10:56 e-Cigarette/Vaping Use Never Used 08/10/23 10:56 PHQ-9: PHQ-9 Score PHQ-9: Total score 9 08/10/23 10:56 Depression Screening Interpretation: Positive Thrive Assessment: Date of Thrive Assessment Date Thrive assessed 08/10/23 08/10/23 10:56 Currently or been in a relationship where the following occur: no concerns reported Const Other: General: no acute distress, well developed, alert and awake Nutritional Appearance: well nourished Orientation/consciousness: patient oriented x3 HENMT Head: Yes normocephalic and Yes atraumatic Ears: hearing grossly normal bilaterally and TM's normal bilaterally General nose exam: Normal external nose present and Normal nares present Mouth: Normal oral and palatal mucosa present and moist mucous membranes Teeth and gingiva: dentition normal Throat: Yes oropharynx normal Eyes Pupils: Equal, round and reactive pupils present and Pupil accommodation reflex normal EOM: EOMs intact bilaterally Neck Neck: Yes normal visual inspection, Yes no lymphadenopathy and Yes trachea midline Thyroid: Thyroid normal Carotids: no bruits Lymphatic: no lymphadenopathy noted Chest Chest palpation & inspection: normal inspection of the chest Resp Effort & Inspection: normal respiratory effort Auscultation: clear to auscultation bilaterally Cardio Rate: regular rate Rhythm: regular rhythm Heart sounds: S1 normal heart sound present, S2 normal heart sound present, no gallops, no murmurs and no rubs Bruits: no abdominal aortic bruits and no carotid bruits GI Palpation (GI): No Abdominal aortic bruit present, Soft to palpation, nontender, No hepatosplenomegaly present and No Rebound tenderness present Auscultation: normal bowel sounds General: Yes no CVA tenderness Back/Spine/Pelvis Back: no CVA tenderness Cervical Spine: cervical ROM normal and No Cervical spine tenderness Thoracic/Lumbar Spine: thoraco-lumbar ROM normal, No pain with thoraco-lumbar ROM, No thoracic spinal tenderness and No lumbar spinal tenderness Skin General: warm and dry. Normal skin color. Normal skin turgor Lesions: no lesions Rashes: no rashes Trauma: no lacerations or abrasions Wounds: no wounds Nails: normal Neuro General: patient oriented x3, gait normal and CN's II-XI intact bilaterally Cranial nerves: Yes Equal, round and reactive pupils present Cognition (Neuro): normal cognition Gait exam (Neuro): Normal gait present Motor exam (neuro): 5/5 motor strength present throughout Sensory Exam: No Sensory deficit (Neuro) Deep tendon reflexes (DTR's): Right patellar reflex intensity grade: 2+ and Left patellar reflex intensity grade: 2+ Extrem General: Yes normal to inspection, No edema and No calf tenderness Psych Appearance: grossly normal Affect: normal affect Attitude: cooperative Thought process: Normal thought process present Assessment and Plan Assessment & Plan (1) Normal physical exam: Code(s): Z00.00 - Encounter for general adult medical examination without abnormal findings Plan: No significant physical restrictions or limitations noted Healthy diet and routine exercise encouraged Continue follow-up with dietitian as planned Return in a year for an extended physical exam or sooner with symptoms or concerns Verbalized understanding and agreed with the plan (2) Morbid obesity: Code(s): E66.01 - Morbid (severe) obesity due to excess calories Plan: She currently weighs 250 lb, BMI is 40.4 Healthy diet and routine exercise encouraged Follow-up with transport tech as planned Return with symptoms or concerns Verbalized understanding and agreed with treatment plan (3) Vaccine counseling: Code(s): Z71.85 - Encounter for immunization safety counseling Plan: She has not been vaccinated for influenza and declines a flu vaccine Instructed on the importance of vaccination and encouraged to get vaccination for influenza (4) Anxiety: Code(s): F41.9 - Anxiety disorder, unspecified Plan: She reports being anxious for the past 7 months. She attributes her symptoms to the content of the news and been worried about her 15-year-old son's welfare and safety PHQ-9 and JEANNIE-7 scores revealed mild depression and moderate anxiety respectively She declines medication treatment at this time Routine exercise and deep breathing/relaxation techniques encouraged May inform her PCP if she changes her mind on medication treatment Follow-up with worsening or new symptoms Verbalized understanding and agreed with the plan (5) Laboratory tests ordered as part of a complete physical exam (CPE): Code(s): Z00.00 - Encounter for general adult medical examination without abnormal findings Plan: Fasting labs ordered in preparation of a complete physical exam. Advised to fast for at least 10 hours before getting labs drawn. May drink water Verbalized understanding and agreed with treatment plan. Orders: Orders Comprehensive [place]. Panel Fast 1 Year Z00.00 - Encounter for general adult medical examination without abnormal findings TSH reflex Free T4 1 Year Z00.00 - Encounter for general adult medical examination without abnormal findings UA CC w/rflx Micro + Cult 1 Year Z00.00 - Encounter for general adult medical examination without abnormal findings Complete Blood Count Auto Diff 1 Year Z00.00 - Encounter for general adult medical examination without abnormal findings Lipid Panel 1 Year Z00.00 - Encounter for general adult medical examination without abnormal findings Medications: Changed From psyllium husk (Metamucil) mix into at least 8 oz of water or juice before administering 1 tbsp PO DAILY 660 grams 0RF To psyllium husk (Metamucil) mix into at least 8 oz of water or juice before administering 1 tbsp PO DAILY PRN Coding Level of Care Code Est Pt Prev Care [id number]([id number]) Diagnoses Normal physical exam Z00.00 Morbid obesity E66.01 Vaccine counseling Z71.85 Anxiety F41.9 Laboratory tests ordered as part of a complete physical exam (CPE) Z00.00 Additional Codes JEANNIE-7 Assessment Billing - JEANNIE-7 Assessment Tool: JEANNIE-7 Assessment [id number] ([id number])
== END 2023-08-10 11:20 | disposition home or self-care (01) ==
PROVIDERS: PCP Nurse Practitioner Family; Visit Provider Nurse Practitioner Family
DX: Z00.00 Encounter for general adult medical examination without abnormal findings (principal); E66.01 Morbid (severe) obesity due to excess calories; Z68.41 Body mass index [BMI] 40.0-44.9, adult; Z71.85 Encounter for immunization safety counseling; F41.9 Anxiety disorder, unspecified
CPT/HCPCS: 99395

== ENCOUNTER 2024-08-12 10:45 | Outpatient (AMB) | payer OTHER, SELFPAY ==
--- NOTE | 2024-08-12 10:47 | MHC.PC.OV ---
Vital Signs 08/12/24 10:56 Height 5 ft 6 in Weight 249 lb 6 oz BMI 40.2 BP 116/68 Blood Pressure Location Lt brachial Respiration 14 Pulse 69 Pulse Source Pulse Oximeter Temp 98.3 F Temp Source Oral Pulse Oximetry (%) 98 Oxygen Delivery Method Room Air Intake Visit Reasons: CPE Intake Note: Domingo presents in the office today for her annual physical. Patient did not get her labs done. Patients father just . 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: No Allergies No Known Allergies [No Known Allergies*] Allergy (Verified 08/12/24 11:00) Medication List - Last Reconciled 08/12/24 by Jadon Redding CNP psyllium husk (Metamucil) 1 tbsp PO DAILY PRN Tobacco use date assessed: 08/12/24 Dental Screening Dental Screen Date: 08/12/24 Did you have a dental visit in the last 12 months?: Yes Did you have a dental problem in the last 6 months where you did not have access to dental care?: No Was dental information given to patient?: Patient has dentist HPI HPI Comments History of Present Illness Details 38-year-old female presents for an extended physical exam. Acute issue(s) - She reports anxiety symptoms which she relates to her the sudden of her father 3 weeks ago. Her sleep is also interrupted. - Requests a referral to dermatology for skin cancer screening. Past Medical History - Pprediabetes, morbid morbid obesity, anxiety Social History - Nonsmoker. Does not vape. Drinks 1-2 beers every 3 months. Denies recreational drug use - She generally makes healthy dietary choices. She recently started exercising routinely. She is able to fall asleep but has difficulty maintaining sleep; she sleep an average of 4-5 hours nightly Health maintenance - Last eye exam was a year ago. Referred to Ophthalmology for routine eye care - Last dental visit was in 05/2024. - Last Tdap was in 12/09/2013; received Tdap vaccine today - Has not been vaccinated for the flu this season; declines vaccination - Last pap smear test was 2 years ago at [facility] [place] [facility] [place]/04/2024 [facility] Medical History No pertinent past medical history Surgical History H/O removal of cyst History of cholecystectomy Family History Maternal Grandmother Thyroid disorder Brother Thyroid disorder Maternal Aunt Thyroid disorder Maternal Aunt Thyroid disorder Maternal Aunt Thyroid disorder Social History Housing: House Alcohol intake: current Comment: Social Patient Tobacco Use Status: Never used Tobacco e-Cigarette/Vaping Use: Never Used service: No Current occupational status: employed Current occupation: [employer], [place] Current occupational exposures/hazards: No Cognitive needs: No Hearing needs: No Vision needs: No Questionnaire PHQ-9 Over the last 2 weeks, how often have you been bothered by any of the following problems? 1. Little interest or pleasure in doing things: several days 2. Feeling down, depressed, or hopeless: several days 3. Trouble falling or staying asleep, or sleeping too much: several days 4. Feeling tired or having little energy: not at all 5. Poor appetite or overeating: several days 6. Feeling bad about yourself - or that you are a failure or have let yourself or your family down: not at all 7. Trouble concentrating on things, such as reading the newspaper or watching television: not at all 8. Moving or speaking so slowly that other people could have noticed. Or the opposite - being so fidgety or restless that you have been moving around a lot more than usual: not at all 9. Thoughts that you would be better off or of hurting yourself in some way: not at all Total score: 4 Depression Screening Interpretation: Negative Depression Screening Done: Yes 38634 - PHQ-9 Billing: Patient declined-do not bill Source: Developed by Drs. Sina Suh, Margareth Gardner, Jhonny Edwards and colleagues, with an educational debra from [employer]. Thrive Questionnaire Date Thrive assessed: 08/12/24 I am a: Patient What is your living situation today?: I have a steady place to live Within the past 12 months, did the food you bought not last and you didn't have the money to get more?: Never true Within the past 12 months, did you worry whether your food would run out before you got money to buy more?: Never true Do you have trouble paying for medicines?: No Do you have trouble getting transportation to medical appointments?: No Do you have trouble paying your heating and electricity bill?: No Do you have trouble taking care of your child, family member or friend?: No Do you have trouble with day-to-day activities such as bathing, preparing meals, shopping, managing finances, etc.?: No Are you currently unemployed and looking for a job?: No Are you interested in more education?: No Please select the resources that you would like help with: None Currently or been in a relationship where the following occur: No concerns reported THRIVE Score: 0 AUDIT C Alcohol Use Questionnaire (AUDIT-C) 1. How often do you have a drink containing alcohol?: Monthly or less 2. How many drinks containing alcohol do you have on a typical day when you are drinking?: 1 or 2 3. How often do you have six or more drinks on one occasion?: Never Total Score: 1 JEANNIE-7 AMB Questionnaire JEANNIE-7 Date JEANNIE - 7 assessed: 08/12/24 Feeling nervous, anxious, or on edge: 1 = Several days Not being able to stop or control worryin = Several days Worrying too much about different things: 0 = Not at all Trouble relaxin = Several days Being so restless that it is hard to sit still: 0 = Not at all Becoming easily annoyed or irritable: 0 = Not at all Feeling afraid as if something awful might happen: 1 = Several days Total JEANNIE-7 score (0-4 normal; 5-9 mild; 10-14 moderate; 15-21 severe): 4 Source: Developed by Drs. Sina Suh, Margareth Gardner, Jhonny Edwards and colleagues, with an educational debra from [employer]. JEANNIE-7 Assessment Billing JEANNIE-7 Assessment Tool: JEANNIE-7 Assessment 09672 Review of Systems Const Details: Denies chills, Denies fatigue, Denies fever(s), Denies headache(s) and Denies weakness HEENT Denies change in vision, Denies dizziness, Denies headache(s), Denies hearing loss, Denies nasal congestion, Denies sinus pain, Denies sinus pressure and Denies sore throat Card Denies chest pain, Denies lightheadedness, Denies dyspnea and Denies other (palpitations) Resp Denies cough, Denies dyspnea and Denies wheezing GI Denies abdominal pain, Denies melena, Denies hematochezia, Denies change in bowel habits, Denies dyspepsia and Denies nausea Denies hematuria and Denies dysuria Musc Denies abnormal gait, Denies myalgias, Denies arthralgias, Denies numbness and Denies tingling Skin/Breast Denies rash, Denies unusual bruising and Denies wounds Neuro Denies abnormal gait, Denies dizziness, Denies headache(s), Denies memory loss, Denies numbness, Denies Sensory deficit (Neuro), Denies tingling and Denies weakness Psych Denies anxiety, Denies depression and Denies memory loss Endo Denies cold intolerance, Denies fatigue, Denies heat intolerance, Denies polydipsia and Denies polyuria Iron/Lymph Denies easy bleeding and Denies easy bruising Aller/Immun Denies wheezing Physical exam (Primary Care) Vital Signs: Last Vital Signs Temp 98.3 F 08/12/24 10:56 Pulse 69 08/12/24 10:56 Resp 14 08/12/24 10:56 BP 116/68 08/12/24 10:56 Pulse Ox 98 08/12/24 10:56 Oxygen Delivery Method Room Air 08/12/24 10:56 BMI result Body Mass Index 40.2 Tobacco/Smoking Status: Tobacco use Status Tobacco use date assessed 08/12/24 08/12/24 10:50 Patient Tobacco Use Status Never used Tobacco 08/12/24 10:55 e-Cigarette/Vaping Use Never Used 08/12/24 10:55 PHQ-9: PHQ-9 Score PHQ-9: Total score 4 08/12/24 11:06 Depression Screening Interpretation: Negative Thrive Assessment: Date of Thrive Assessment Date Thrive assessed 08/12/24 08/12/24 11:01 Currently or been in a relationship where the following occur: No concerns reported Const Other: General: no acute distress, well developed, alert and awake Nutritional Appearance: well nourished Orientation/consciousness: patient oriented x3 HENMT Head: Yes normocephalic and Yes atraumatic Ears: hearing grossly normal bilaterally and TM's normal bilaterally General nose exam: Normal external nose present and Normal nares present Mouth: Normal oral and palatal mucosa present and moist mucous membranes Teeth and gingiva: dentition normal Throat: Yes oropharynx normal Eyes Pupils: Equal, round and reactive pupils present and Pupil accommodation reflex normal EOM: EOMs intact bilaterally Neck Neck: Yes normal visual inspection, Yes no lymphadenopathy and Yes trachea midline Thyroid: Thyroid normal Carotids: no bruits Lymphatic: no lymphadenopathy noted Chest Chest palpation & inspection: normal inspection of the chest Resp Effort & Inspection: normal respiratory effort Auscultation: clear to auscultation bilaterally Cardio Rate: regular rate Rhythm: regular rhythm Heart sounds: S1 normal heart sound present, S2 normal heart sound present, no gallops, no murmurs and no rubs Bruits: no abdominal aortic bruits and no carotid bruits GI Palpation (GI): No Abdominal aortic bruit present, Soft to palpation, nontender, No hepatosplenomegaly present and No Rebound tenderness present Auscultation: normal bowel sounds General: Yes no CVA tenderness Back/Spine/Pelvis Back: no CVA tenderness Cervical Spine: cervical ROM normal and No Cervical spine tenderness Thoracic/Lumbar Spine: thoraco-lumbar ROM normal, No pain with thoraco-lumbar ROM, No thoracic spinal tenderness and No lumbar spinal tenderness Skin General: warm and dry. Normal skin color. Normal skin turgor Lesions: no lesions Rashes: no rashes Trauma: no lacerations or abrasions Wounds: no wounds Nails: normal Neuro General: patient oriented x3, gait normal and CN's II-XI intact bilaterally Cranial nerves: Yes Equal, round and reactive pupils present Cognition (Neuro): normal cognition Gait exam (Neuro): Normal gait present Motor exam (neuro): 5/5 motor strength present throughout Sensory Exam: No Sensory deficit (Neuro) Deep tendon reflexes (DTR's): Right patellar reflex intensity grade: 2+ and Left patellar reflex intensity grade: 2+ Extrem General: Yes normal to inspection, No edema and No calf tenderness Psych Appearance: grossly normal Affect: normal affect Attitude: cooperative Thought process: Normal thought process present Immunizations Boostrix Tdap 2.5 Lf unit-8 mcg-5 Lf/0.5 mL intramuscular syringe Performing Provider: Jadon Redding CNP [place] [facility] Administered by: Kasey Brown RN on 08/12/24 11:28 Dose Route Admin Location Dispensed Lot Number Expiration Date NDC Interpretive Program Coordinator 0.5 mL IM Right Deltoid 0.5 mL [id number] 05/20/26 [id number] [employer] VIS Given Date VIS Provided VIS Publication Date 08/12/24 Single Vaccine 20 Eligibility Eligibility Date Funding Source Not [facility] Eligible 08/12/24 Private Coding Level of Care Code Est Pt Level 3 (04002) Est Pt Prev Care 18-39y(81876) Diagnoses Normal physical exam Z00.00 Morbid obesity E66.01 Anxiety F41.9 Sleep disturbance G47.9 Eye exam, routine Z01.00 Skin cancer screening Z12.83 Additional Codes JEANNIE-7 Assessment Billing - JEANNIE-7 Assessment Tool: JEANNIE-7 Assessment 64737 ([id number]) Assessment & Plan Assessment & Plan (1) Normal physical exam: Code(s): Z00.00 - Encounter for general adult medical examination without abnormal findings Category: Medical Plan: No significant functional limitations noted. Advised to fast for 10-12 hours, may drink water, and perform lab work at least 2-3 days before her next visit. Follow-up for an office visit in 2-3 weeks for anxiety and labs review. Return sooner with symptoms or concerns. Verbalized understanding and agreed with the plan. (2) Morbid obesity: Code(s): E66.01 - Morbid (severe) obesity due to excess calories Category: Medical Plan: She currently weighs 249 lb, BMI is 40.2. She generally eats healthy. She recently started exercising routinely. Healthy diet and routine exercise encouraged. Referred to weight management clinic as requested. Follow-up as needed. Verbalized understanding and agreed with the plan. (3) Anxiety: Code(s): F41.9 - Anxiety disorder, unspecified Category: Medical Plan: She has been experiencing anxiety symptoms related to the sudden of her father 3 weeks ago. Her sleep is also interrupted. PHQ-9 and JEANNIE-7 scores are normal. Will trial hydroxyzine 25 mg 3 times daily as needed for anxiety; may take 25 mg during the day for anxiety and 50 mg at bedtime for sleep. Instructed on the risks, benefits, and potential adverse reactions of the medication. Routine exercise encouraged. She met with the community health mental health social worker who will assist her with connecting with a therapist. Follow-up in 2-3 weeks or return sooner with worsening or new symptoms. Verbalized understanding and agreed with treatment plan. (4) Sleep disturbance: Code(s): G47.9 - Sleep disorder, unspecified Category: Medical Plan: Plan as above. (5) Eye exam, routine: Code(s): Z01.00 - Encounter for examination of eyes and vision without abnormal findings Category: Medical Plan: Last eye exam was a year ago. Referred to Ophthalmology for routine eye care. (6) Skin cancer screening: Code(s): Z12.83 - Encounter for screening for malignant neoplasm of skin Category: Medical Plan: Referred to dermatology. Orders: Orders Vitamin D 25-OH Total Today Z00.00 - Encounter for general adult medical examination without abnormal findings TDaP Immunization Today Z23 - Encounter for immunization AMB Hemoglobin A1c Today Z13.9 - Encounter for screening, unspecified Referrals Ophthalmology Referral Z01.00 - Encounter for examination of eyes and vision without abnormal findings Dermatology Referral Z12.83 - Encounter for screening for malignant neoplasm of skin Medical Weight Management Referral E66.01 - Morbid (severe) obesity due to excess calories Medications: New hydroxyzine HCl 25 mg PO TID PRN 90 tabs 0RF anxiety
[2024-08-12 10:56] VITALS: BP 116/68; PULSE 69; RESP 14; TEMP 36.8; O2SAT 98; BMI 40.2
== END 2024-08-12 11:37 | disposition home or self-care (01) ==
LOC: HO.HMCFM 10:46
PROVIDERS: PCP Nurse Practitioner Family; Visit Provider Nurse Practitioner Family
DX: Z00.00 Encounter for general adult medical examination without abnormal findings (principal); E66.01 Morbid (severe) obesity due to excess calories; Z68.41 Body mass index [BMI] 40.0-44.9, adult; F41.9 Anxiety disorder, unspecified; G47.9 Sleep disorder, unspecified; Z12.83 Encounter for screening for malignant neoplasm of skin; Z23 Encounter for immunization

== ENCOUNTER → 2024-08-12 10:45 | Outpatient (BNVA) | payer OTHER, SELFPAY | PROVIDERS: PCP Nurse Practitioner Family; Visit Provider Nurse Practitioner Family | DX: Z00.00 Encounter for general adult medical examination without abnormal findings (principal); Z23 Encounter for immunization; E66.01 Morbid (severe) obesity due to excess calories; Z68.41 Body mass index [BMI] 40.0-44.9, adult; F41.9 Anxiety disorder, unspecified; G47.9 Sleep disorder, unspecified | CPT/HCPCS: 90471; 90715; 96127 ==

== ENCOUNTER 2024-08-16 08:19 | Outpatient (REF) | payer OTHER, SELFPAY ==
[2024-08-16 09:53] LABS: MANUAL DIFF FLAG NO
[2024-08-16 10:06] LABS: Appearance Urine Clear; Color Urine Yellow; Glucose Urine UA Negative (Negative); Leukocyte Esterase Urine Trace (Negative); Nitrite Urine Negative (Negative); PH 5.5 (5.0-9.0); Specific Gravity - Urine 1.025 (1.005-1.025); UMIC TRIGGER UACC YES; Urine Blood Negative (Negative); Urine Ketones Negative (Negative); Urine Protein Negative (Neg-Trace)
[2024-08-16 10:08] LABS: Basophils Percent Auto 0.2 % (0-2); Eosinophils Absolute Auto 0.1 X10*3/uL (0.0-0.4); Eosinophils Percent Auto 1.2 % (0-4); Hematocrit 40.6 % (37.0-47.0); Hemoglobin 13.6 g/dl (12.0-16.0); Imm Gran Abs Auto 0.04 X10*3/uL (0.00-0.03); Imm Gran Pct Auto 0.5 % (0.0-0.4); Lymphocytes Absolute Auto 3.2 X10*3/uL (1.2-4.9); Lymphocytes Percent Auto 37.8 % (20-40); Mean Corpuscular HGB Conc 33.5 g/dl (31.0-35.0); Mean Corpuscular Hemoglobin 25.7 pg (27.0-33.0); Mean Corpuscular Volume 76.7 fL (80.0-98.0); Mean Platelet Volume 8.6 fL (9.4-12.3); Monocytes Absolute Auto 0.7 X10*3/uL (0.1-1.2); Monocytes Percent Auto 8.2 % (2-11); Neutrophils Absolute Auto 4.5 x10*3/uL (2.0-8.3); Neutrophils Percent Auto 52.1 % (45-73); Platelet Count 245 X10*3/uL (160-400); Red Blood Count 5.29 X10*6/uL (4.20-5.50); Red Cell Distribution Width 13.2 % (11.0-16.0); White Blood Count 8.5 X10*3/uL (4.8-10.8)
[2024-08-16 10:12] LABS: Bacteria Urine Trace (None Seen); Hyaline Casts Urine 0-2 /LPF (0-2); RBC Urine 0-2 /HPF (0-2); WBC Urine 0-5 /HPF (0-5)
[2024-08-16 10:44] LABS: Alanine Aminotransferase 26 U/L (0-31); Albumin Level 4.2 g/dL (3.5-5.0); Alkaline Phosphatase 80 U/L (39-117); Anion Gap 8 (12-20); Aspartate Amino Transferase 23 U/L (5-31); Bilirubin Total 0.6 mg/dL (0.0-1.0); Blood Urea Nitrogen 15 mg/dL (9-16); Calcium 9.1 mg/dL (8.4-10.2); Carbon Dioxide 25 mmol/L (22-29); Chloride 110 mmol/L (96-108); Cholesterol 183 mg/dL (<200); Estimated Glomerular Filt Rate 56; Glucose Fasting 108 mg/dL (60-99); HDL Cholesterol 41 mg/dL (>40); LDL Cholesterol Calculated 125 mg/dL (<100); Potassium 4.4 mmol/L (3.3-5.1); Sodium 139 mmol/L (135-145); Total Protein 7.2 g/dL (6.5-8.0); Triglycerides 85 mg/dL (<150)
[2024-08-16 10:48] LABS: TSH reflex Free T4 1.15 uIU/mL (0.32-4.0); Vitamin D 25-OH Total 44.7 ng/mL (>30)
== END 2024-08-16 08:20 | disposition home or self-care (01) ==
LOC: HO.10HDL 08:19
PROVIDERS: Visit Provider Nurse Practitioner Family
DX: Z00.00 Encounter for general adult medical examination without abnormal findings (principal); Z13.6 Encounter for screening for cardiovascular disorders
CPT/HCPCS: 36415; 80053; 80061; 81001; 81003; 82306; 84443; 85025

== ENCOUNTER 2024-09-02 10:43 | Outpatient (AMB) | payer OTHER, SELFPAY ==
--- NOTE | 2024-09-02 10:47 | MHC.PC.OV ---
Vital Signs 09/02/24 10:53 Height 5 ft 6 in Weight 249 lb BMI 40.2 BP 118/78 Blood Pressure Location Rt brachial Position Sitting Respiration 14 Pulse 78 Pulse Source Pulse Oximeter Temp 98.7 F Temp Source Temporal Artery Scan Pulse Oximetry (%) 98 Oxygen Delivery Method Room Air Intake Visit Reasons: 2-3 wks anxiety, labs review Intake Note: Domingo presents in the office today for a lab review and her anxiety. Allergies No Known Allergies [No Known Allergies*] Allergy (Verified 09/02/24 11:06) Medication List - Last Reconciled 09/02/24 by Jadon Redding CNP hydroxyzine HCl 25 mg PO TID PRN psyllium husk (Metamucil) 1 tbsp PO DAILY PRN Tobacco use date assessed: 09/02/24 Dental Screening Dental Screen Date: 09/02/24 Did you have a dental visit in the last 12 months?: Yes Did you have a dental problem in the last 6 months where you did not have access to dental care?: No Was dental information given to patient?: Patient has dentist HPI HPI Comments History of Present Illness Details 38-year-old female presents for anxiety and review of recent lab results. She admits to taking hydroxyzine as prescribed without adverse reactions. She reports controlled anxiety symptoms on hydroxyzine. His anxiety is related to recent sudden of her father. She has been sleeping well. She had an intake to connect with a therapist and is currently on a wait list. No acute symptoms at this time. [facility] Medical History No pertinent past medical history Surgical History H/O removal of cyst History of cholecystectomy Family History Maternal Grandmother Thyroid disorder Brother Thyroid disorder Maternal Aunt Thyroid disorder Maternal Aunt Thyroid disorder Maternal Aunt Thyroid disorder Social History (Updated 09/02/24 @ 10:49 by Margarita Gutiérrez MA) Housing: House Alcohol intake: current Comment: Social Patient Tobacco Use Status: Never used Tobacco e-Cigarette/Vaping Use: Never Used service: No Current occupational status: employed Current occupation: [employer], [employer] Current occupational exposures/hazards: No Cognitive needs: No Hearing needs: No Vision needs: No Questionnaire PHQ-9 Over the last 2 weeks, how often have you been bothered by any of the following problems? 1. Little interest or pleasure in doing things: several days 2. Feeling down, depressed, or hopeless: not at all 3. Trouble falling or staying asleep, or sleeping too much: several days 4. Feeling tired or having little energy: more than half the days 5. Poor appetite or overeating: more than half the days 6. Feeling bad about yourself - or that you are a failure or have let yourself or your family down: not at all 7. Trouble concentrating on things, such as reading the newspaper or watching television: more than half the days 8. Moving or speaking so slowly that other people could have noticed. Or the opposite - being so fidgety or restless that you have been moving around a lot more than usual: not at all 9. Thoughts that you would be better off or of hurting yourself in some way: not at all Total score: 8 Depression Screening Interpretation: Positive Depression Screening Follow-up: Existing condition and In treatment Depression Screening Done: Yes 11017 - PHQ-9 Billing: Patient declined-do not bill Source: Developed by Drs. Sina Suh, Margareth aGrdner, Jhonny Edwards and colleagues, with an educational debra from [employer]. Thrive Questionnaire Date Thrive assessed: 09/02/24 I am a: Patient What is your living situation today?: I have a steady place to live Within the past 12 months, did the food you bought not last and you didn't have the money to get more?: Never true Within the past 12 months, did you worry whether your food would run out before you got money to buy more?: Never true Do you have trouble paying for medicines?: No Do you have trouble getting transportation to medical appointments?: No Do you have trouble paying your heating and electricity bill?: No Do you have trouble taking care of your child, family member or friend?: No Do you have trouble with day-to-day activities such as bathing, preparing meals, shopping, managing finances, etc.?: No Are you currently unemployed and looking for a job?: No Are you interested in more education?: No Please select the resources that you would like help with: None Currently or been in a relationship where the following occur: No concerns reported THRIVE Score: 0 AUDIT C Alcohol Use Questionnaire (AUDIT-C) 1. How often do you have a drink containing alcohol?: Monthly or less 2. How many drinks containing alcohol do you have on a typical day when you are drinking?: 1 or 2 3. How often do you have six or more drinks on one occasion?: Never Total Score: 1 Score Reviewed/Action Taken: No JEANNIE-7 AMB Questionnaire JEANNIE-7 Date JEANNIE - 7 assessed: 09/02/24 Feeling nervous, anxious, or on edge: 1 = Several days Not being able to stop or control worryin = More than half the days Worrying too much about different things: 2 = More than half the days Trouble relaxin = Several days Being so restless that it is hard to sit still: 1 = Several days Becoming easily annoyed or irritable: 1 = Several days Feeling afraid as if something awful might happen: 2 = More than half the days Total JEANNIE-7 score (0-4 normal; 5-9 mild; 10-14 moderate; 15-21 severe): 10 Source: Developed by Drs. Sina Suh, Margareth Gardner, Jhonny Edwards and colleagues, with an educational debra from [employer]. JEANNIE-7 Assessment Billing JEANNIE-7 Assessment Tool: JEANNIE-7 Assessment 37069 ACT Questionnaire In the past 4 weeks, how much of the time did your asthma keep you from getting as much done at work, school or at home?: None of the time Score: 5 Review of Systems Const Details: Const Denies chills, Denies fatigue, Denies fever(s), Denies headache(s) and Denies weakness ENT Denies dizziness and Denies headache(s) Card Denies chest pain, Denies lightheadedness, Denies dyspnea and Denies other (Palpitations) Resp Denies cough, Denies dyspnea, Denies wheezing and Denies other ( shortness of breath) GI Denies abdominal pain, Denies melena, Denies hematochezia, Denies change in bowel habits, Denies dyspepsia and Denies nausea Denies hematuria and Denies dysuria Musc Denies abnormal gait, Denies myalgias, Denies arthralgias, Denies numbness and Denies tingling Skin/Breast Denies rash, Denies unusual bruising and Denies wounds Neuro Denies abnormal gait, Denies dizziness, Denies headache(s), Denies memory loss, Denies numbness, Denies Sensory deficit (Neuro), Denies tingling and Denies weakness Psych Reports anxiety, Denies depression, Denies memory loss Endo Denies cold intolerance, Denies fatigue, Denies heat intolerance, Denies polydipsia and Denies polyuria Aller/Immun Denies wheezing Physical exam (Primary Care) Vital Signs: Last Vital Signs Temp 98.7 F 09/02/24 10:53 Pulse 78 09/02/24 10:53 Resp 14 09/02/24 10:53 BP 118/78 09/02/24 10:53 Pulse Ox 98 09/02/24 10:53 Oxygen Delivery Method Room Air 09/02/24 10:53 BMI result Body Mass Index 40.2 Tobacco/Smoking Status: Tobacco use Status Tobacco use date assessed 09/02/24 09/02/24 10:56 Patient Tobacco Use Status Never used Tobacco 09/02/24 10:49 e-Cigarette/Vaping Use Never Used 09/02/24 10:49 PHQ-9: PHQ-9 Score PHQ-9: Total score 8 09/02/24 11:13 Depression Screening Interpretation: Positive Depression Screening Follow-up: Existing condition and In treatment Thrive Assessment: Date of Thrive Assessment Date Thrive assessed 09/02/24 09/02/24 10:56 Currently or been in a relationship where the following occur: No concerns reported Const Other: General: no acute distress and well developed Nutritional Appearance: well nourished Orientation/consciousness: patient oriented x3 HENMT Head: Yes normocephalic and Yes atraumatic Eyes General: appearance normal, both eyes and all related structures Pupils: Equal, round and reactive pupils present EOM: EOMs intact bilaterally Resp Effort & Inspection: normal respiratory effort Auscultation: clear to auscultation bilaterally Cardio Rate: regular rate Rhythm: regular rhythm Heart sounds: S1 normal heart sound present, S2 normal heart sound present, no gallops, no murmurs and no rubs GI Palpation (GI): No Abdominal aortic bruit present, Soft to palpation, nontender, No hepatosplenomegaly present and No Rebound tenderness present Auscultation: normal bowel sounds General: Yes no CVA tenderness Back/Spine/Pelvis Back: no CVA tenderness Cervical Spine: cervical ROM normal and No Cervical spine tenderness Thoracic/Lumbar Spine: thoraco-lumbar ROM normal, No pain with thoraco-lumbar ROM, No thoracic spinal tenderness and No lumbar spinal tenderness Extrem General: Yes normal to inspection, No edema and No calf tenderness Skin General: warm and dry. Normal skin color. Normal skin turgor Neuro General: patient oriented x3, gait normal and no focal neuro deficit Cranial nerves: Yes Equal, round and reactive pupils present Cognition (Neuro): normal cognition Gait exam (Neuro): Normal gait present Sensory Exam: No Sensory deficit (Neuro) Psych Appearance: grossly normal Affect: normal affect Attitude: cooperative Thought process: Normal thought process present Results AMB Hemoglobin A1c AMB Hemoglobin A1c 5.7 % Last Edit by Katherin Gabriel MA on 09/02/24 12:00 Results Reviewed Results Reviewed: Laboratory Last Values Hgb A1c (Clinic) 5.7 % (4.0-6.0) 09/02/24 11:21 Coding Level of Care Code Est Pt Level 3 (28531) Diagnoses Anxiety F41.9 Elevated LDL cholesterol level E78.00 Microcytosis R71.8 Pre-diabetes R73.03 Additional Codes JEANNIE-7 Assessment Billing - JEANNIE-7 Assessment Tool: JEANNIE-7 Assessment 98501 ([id number]) Assessment & Plan Assessment & Plan (1) Anxiety: Code(s): F41.9 - Anxiety disorder, unspecified Category: Medical Plan: Controlled anxiety and depressive symptoms. She sleeps well. PHQ-9 and JEANNIE-7 scores revealed mild depression and moderate anxiety respectively. Continue current treatment regimen. Routine exercise encouraged. She is on a wait list to connect with a therapist. Advised to follow-up as planned. Follow-up in 3 months or sooner with worsening or new symptoms. Verbalized understanding and agreed with treatment plan. (2) Elevated LDL cholesterol level: Code(s): E78.00 - Pure hypercholesterolemia, unspecified Category: Medical Plan: Recent LDL is slightly elevated, 125. Advised to limit foods high in saturated fat and avoid foods high in trans fat. Routine exercise encouraged. Will recheck lipid panel levels in 3 months. Verbalized understanding and agreed with the plan. (3) Microcytosis: Code(s): R71.8 - Other abnormality of red blood cells Category: Medical Plan: Recent LDL level is low, 76.7 RBC and H&H levels are normal. She has history of low MCV and normal RBC and H&H. Thalassemia is possible. Will check iron profile, ferritin, vitamin B12, and folate levels. Will make changes as needed. (4) Pre-diabetes: Code(s): R73.03 - Prediabetes Category: Medical Plan: Recent fasting glucose is slightly elevated, 108. A1c in 03/2023 was 5.8%. A1c today is 5.7%. Healthy diet and routine exercise encouraged. Will monitor A1c annually or with with the symptoms or concerns. Verbalized understanding and agreed with the plan. Orders: Orders Vitamin B12 and Folate Today R71.8 - Other abnormality of red blood cells IRON PROFILE Today R71.8 - Other abnormality of red blood cells Ferritin Today R71.8 - Other abnormality of red blood cells AMB Hemoglobin A1c Today Z13.9 - Encounter for screening, unspecified Lipid Panel 3 Months E78.00 - Pure hypercholesterolemia, unspecified
[2024-09-02 10:53] VITALS: BP 118/78; PULSE 78; RESP 14; TEMP 37.1; O2SAT 98; BMI 40.2
--- OUTSIDE RECORDS SUMMARY | 2024-09-02 11:28 | XMS_ITS | Clinical Summary ---
Author Organization 175 [facility] Address 175 [place] [address] Phone Care Team Providers Care Director Of In Service Education Name Role Phone Unavailable Primary Care Provider Unavailabl e Social History Tobacco Use Types Packs/Day Years Used Date Smoking Tobacco: Never Assessed Comments Unknown Sex and Gender Information Value Date Recorded Sex Assigned at Not on file Legal Sex Female 10:01 AM EDT Gender Identity Not on file Sexual Orientation Not on file Plan of Treatment Upcoming Encounters Date Type Department Care Team ([facility] Contact Info) Description 10/05/2024 3:30 PM EDT Office Visit Bariatric Surgery [facility] [address] [phone] Diana Zazueta PA [address] [address] Health Maintenance Due Date Last Done Comments DTaP,Tdap,and Td Vaccines (1 - Tdap) 10/01/2006 Hepatitis B Vaccines (1 of 3 - 19+ 3-dose series) 10/01/2006 Cervical Cancer Screening: P ap Smear 10/01/2008 COVID-19 Vaccine (2023-2 5 season) 2024 Influenza Vaccine (Season Ended) 2025 HIB Vaccines Aged Out No longer eligi ble based on patient's age to complete this topic HPV Vaccines Aged Out No longer eligi ble based on patient's age to complete this topic Hepatitis A Vaccines Aged Out No long er eligible based on patient's age to complete this topic IPV Vaccines Aged Out No longer eligi ble based on patient's age to complete this topic MMR Vaccines Aged Out No longer eligi ble based on patient's age to complete this topic Meningococcal ACWY Vaccine Aged Out N o longer eligible based on patient's age to complete this topic Meningococcal B Vaccine Aged Out No l onger eligible based on patient's age to complete this topic Pneumococcal Vaccine: Pediat rics (0 to 5 Years) and At-Risk Patients (6 to 64 Years) Aged Out No longer eligible b ased on patient's age to complete this topic RSV Immunization Patients Un rosina 20 months Aged Out No longer eligible b ased on patient's age to complete this topic Varicella Vaccines Aged Out No longer eligible based on patient's age to complete this topic
== END 2024-09-02 11:31 | disposition home or self-care (01) ==
LOC: HO.HMCFM 10:44
PROVIDERS: PCP Nurse Practitioner Family; Visit Provider Nurse Practitioner Family
DX: F41.9 Anxiety disorder, unspecified (principal); E78.00 Pure hypercholesterolemia, unspecified; R71.8 Other abnormality of red blood cells; R73.03 Prediabetes; Z13.9 Encounter for screening, unspecified

== ENCOUNTER → 2024-09-02 10:43 | Outpatient (BNVA) | payer OTHER, SELFPAY | PROVIDERS: PCP Nurse Practitioner Family; Visit Provider Nurse Practitioner Family | DX: F41.9 Anxiety disorder, unspecified (principal); E78.00 Pure hypercholesterolemia, unspecified; R71.8 Other abnormality of red blood cells; R73.03 Prediabetes | CPT/HCPCS: 83036; 96127 ==

== ENCOUNTER 2024-12-27 08:13 | Outpatient (REF) | payer OTHER, SELFPAY ==
--- OUTSIDE RECORDS SUMMARY | 2024-12-27 08:48 | XMS_ITS | Clinical Summary ---
Author Organization 175 [facility] Address 175 [place] [address] Phone Care Team Providers Care Technical Instructor Name Role Phone Jadon Redding STROKE PROGRAM COORDINATOR Primary Care Provider [phone] Allergies No known active allergies Medications tirzepatide, weight loss, (Zepbound) 2.5 mg/0.5 mL injectionIndicat ions:Class 3 severe obesity due to excess calories without serious comorbidity with body mass index (BMI) of 40.0 to 44.9 in adult ([facility] V24, [facility] V28) Inject 0.5 mL (2.5 mg total) under the skin every 7 (seven) days. 2 mL 10/05/2024 Active hydrOXYzine HCL (ATARAX) 25 mg tablet Take 1 tablet (25 mg total) by mouth 3 (three) times a day if needed for anxiety. 08/12/2024 Active nitrofurantoin, macrocrystal-mon ohydrate, (MACROBID) 100 mg capsule Take 1 capsule (100 mg total) by mouth every 12 (twelve) hours. for 5 days 09/15/2024 Active sulfamethoxazole -trimethoprim (BACTRIM DS,SEPTRA DS) 800-160 mg per tablet take 1 tablet by mouth 2 times daily for 3 days 09/19/2024 Active Active Problems Problem Noted Date Diagnosed Date Class 3 severe obesity due t o excess calories without serious comorbidity with body mass index (BMI) of 40.0 to 44.9 in adult ([facility] V24, [facility] V28) 10/05/2024 Encounters Date Type Department Care Team Description 10/05/2024 3:30 PM EDT Office Visit Bariatric Surgery [facility] [address] [facility] [address] [place] [address] Diana Zazueta PA Class 3 severe obesity due to excess calories without serious comorbidity with body mass index (BMI) of 40.0 to 44.9 in adult (CMS/HCC V24, CMS/HCC V28) (Primary Dx) from Last 3 Months Social History Tobacco Use Types Packs/Day Years Used Date Smoking Tobacco: Never Assessed Comments Unknown Sex and Gender Information Value Date Recorded Sex Assigned at Not on file Legal Sex Female 10:01 AM EDT Gender Identity Not on file Sexual Orientation Not on file Last Filed Vital Signs Vital Sign Reading Time Taken Comments Blood Pressure 133/77 10/05/2024 3:29 PM EDT Pulse 66 10/05/2024 3:29 PM EDT Temperature 36.6 C (97.8 F) 10/05/2024 3:29 PM EDT Respiratory Rate - - Oxygen Saturation - - Inhaled Oxygen Concentration - - Weight 116 kg (255 lb) 10/05/2024 3:29 PM EDT Height 167.6 cm (5' 6 ) 10/05/2024 3:29 PM EDT Body Mass Index 41.16 10/05/2024 3:29 PM EDT Plan of Treatment Upcoming Encounters Date Type Department Care Team (Late st Contact Info) Description 01/24/2025 3:15 PM EDT Office Visit Bariatric Surgery - [place] [address] [facility] [address] [place] [phone] Diana Zazueta PA [address] [facility] [address] [place] [address] Health Maintenance Due Date Last Done Comments Hepatitis B Vaccines (1 of 3 - 19+ 3-dose series) 10/01/2006 Cervical Cancer Screening: P ap Smear 10/01/2008 COVID-19 Vaccine (2023-2 5 season) 2024 05/24/2021, 09/22/2020, 08/25/2020 Depression Screening 05/11/2024 Cholesterol Screening (Lipid Panel) 09/03/2024 HIV Screening 09/03/2024 Hepatitis C Screening 09/03/2024 Social Influencers of Health Screening 09/03/2024 Influenza Vaccine (#1) 2025 DTaP,Tdap,and Td Vaccines (3 - Td or Tdap) 08/12/2034 08/12/2024, 01/03/2014 HIB Vaccines Aged Out No longer eligi [...] age to complete this topic Pneumococcal Vaccine: Pediatrics (0 to 5 Years) and At-Risk Patients (6 to 49 Years) Aged Out No longer eligible b ased on patient's age to complete this topic RSV Immunization Patients Under 20 months Aged Out No longer eligible b ased on patient's age to complete this topic Varicella Vaccines Aged Out No longer eligible based on patient's age to complete this topic Insurance [facility] Care Teams Technical Instructor Relationship Specialty Start Date End Date Jadon Redding FNP [address] [place] [place] [id number] PCP - General Family Medicine 10/05/24
[2024-12-27 11:20] LABS: Appearance Urine Clear; Glucose Urine UA Negative (Negative); PH 5.5 (5.0-9.0); Specific Gravity - Urine 1.015 (1.005-1.025); UMIC TRIGGER UACC YES
[2024-12-27 11:34] LABS: UACC Culture Trigger YES
[2024-12-27 11:39] LABS: Cholesterol 166 mg/dL (<200); HDL Cholesterol 35 mg/dL (>40); Iron 64 mcg/dL (30-160); Percent Iron Saturation 26 % (15-50); Total Iron Binding Capacity 246 mcg/dL (228-428); Triglycerides 93 mg/dL (<150); Unsaturated Iron Binding 182 ug/dL
[2024-12-27 12:07] LABS: Ferritin 199 ng/mL (10-122)
[2024-12-27 12:10] LABS: Folate 11.4 ng/mL (> or = 4.0); Vitamin B12 277 pg/mL (200-900)
== END 2024-12-27 08:14 | disposition home or self-care (01) ==
LOC: HO.WFDLDS 08:13
PROVIDERS: Visit Provider Nurse Practitioner Family
DX: Z00.00 Encounter for general adult medical examination without abnormal findings (principal); R71.8 Other abnormality of red blood cells; E78.00 Pure hypercholesterolemia, unspecified
CPT/HCPCS: 36415; 80061; 81001; 82607; 82728; 82746; 83540; 87086

== ENCOUNTER 2025-01-02 14:58 | Outpatient (AMB) | payer OTHER, SELFPAY ==
--- NOTE | 2025-01-02 15:00 | MHC.PC.OV ---
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 Is last menstrual period known: Yes Last menstrual period: 12/19/24 Post menopausal: No Patient : No Allergies No Known Allergies (No Known Allergies*) Allergy (Verified 01/02/25 15:04) Tobacco use date assessed: 01/02/25 Dental Screening Dental Screen Date: 01/02/25 Did you have a dental visit in the last 12 months?: Yes Did you have a dental problem in the last 6 months where you did not have access to dental care?: No Was dental information given to patient?: Patient has dentist HPI HPI Comments History of Present Illness Details 39-year-old female presents for anxiety and elevated LDL follow-up. She admits to making healthy lifestyle choices. She notes that her anxiety symptoms are generally well controlled. She denies depression. She offers no complaints and denies acute symptoms at this time. [facility] Medical History No pertinent past medical history Surgical History H/O removal of cyst History of cholecystectomy Family History Maternal Grandmother Thyroid disorder Brother Thyroid disorder Maternal Aunt Thyroid disorder Maternal Aunt Thyroid disorder Maternal Aunt Thyroid disorder Social History (Updated 09/02/24 @ 10:49 by Margarita Gutiérrez MA) Housing: House Alcohol intake: current Comment: Social Patient Tobacco Use Status: Never used Tobacco e-Cigarette/Vaping Use: Never Used service: No Current occupational status: employed Current occupation: [employer] Current occupational exposures/hazards: No Cognitive needs: No Hearing needs: No Vision needs: No Female Reproductive History Menstrual Date of last menstrual period: 12/19/24 Questionnaire PHQ-9 Over the last 2 weeks, how often have you been bothered by any of the following problems? 1. Little interest or pleasure in doing things: several days 2. Feeling down, depressed, or hopeless: several days 3. Trouble falling or staying asleep, or sleeping too much: several days 4. Feeling tired or having little energy: more than half the days 5. Poor appetite or overeating: several days 6. Feeling bad about yourself - or that you are a failure or have let yourself or your family down: not at all 7. Trouble concentrating on things, such as reading the newspaper or watching television: not at all 8. Moving or speaking so slowly that other people could have noticed. Or the opposite - being so fidgety or restless that you have been moving around a lot more than usual: several days 9. Thoughts that you would be better off or of hurting yourself in some way: not at all Total score: 7 Depression Screening Interpretation: Positive Depression Screening Done: Yes 75912 - PHQ-9 Billing: Yes Source: Developed by Drs. Sina Suh, Margareth Gardner, Jhonny Edwards and colleagues, with an educational debra from [employer]. Thrive Questionnaire Date Thrive assessed: 08/12/24 I am a: Patient What is your living situation today?: I have a steady place to live Within the past 12 months, did the food you bought not last and you didn't have the money to get more?: Never true Within the past 12 months, did you worry whether your food would run out before you got money to buy more?: Never true Do you have trouble paying for medicines?: No Do you have trouble getting transportation to medical appointments?: No Do you have trouble paying your heating and electricity bill?: No Do you have trouble taking care of your child, family member or friend?: No Do you have trouble with day-to-day activities such as bathing, preparing meals, shopping, managing finances, etc.?: No Are you currently unemployed and looking for a job?: No Are you interested in more education?: No Please select the resources that you would like help with: None Currently or been in a relationship where the following occur: No concerns reported THRIVE Score: 0 JEANNIE-7 AMB Questionnaire JEANNIE-7 Date JEANNIE - 7 assessed: 01/02/25 Feeling nervous, anxious, or on edge: 0 = Not at all Not being able to stop or control worryin = Several days Worrying too much about different things: 1 = Several days Trouble relaxin = Not at all Being so restless that it is hard to sit still: 0 = Not at all Becoming easily annoyed or irritable: 1 = Several days Feeling afraid as if something awful might happen: 1 = Several days Total JEANNIE-7 score (0-4 normal; 5-9 mild; 10-14 moderate; 15-21 severe): 4 Source: Developed by Drs. Sina Suh, Margareth Gardner, Jhonny Edwards and colleagues, with an educational debra from [employer]. JEANNIE-7 Assessment Billing JEANNIE-7 Assessment Tool: JEANNIE-7 Assessment 26690 Review of Systems Const Details: Const Denies chills, Denies fatigue, Denies fever(s), Denies headache(s) and Denies weakness ENT Denies dizziness and Denies headache(s) Card Denies chest pain, Denies lightheadedness, Denies dyspnea and Denies other (Palpitations) Resp Denies cough, Denies dyspnea, Denies wheezing and Denies other ( shortness of breath) GI Denies abdominal pain, Denies melena, Denies hematochezia, Denies change in bowel habits, Denies dyspepsia and Denies nausea Denies hematuria and Denies dysuria Musc Denies abnormal gait, Denies myalgias, Denies arthralgias, Denies numbness and Denies tingling Skin/Breast Denies rash, Denies unusual bruising and Denies wounds Neuro Denies abnormal gait, Denies dizziness, Denies headache(s), Denies memory loss, Denies numbness, Denies Sensory deficit (Neuro), Denies tingling and Denies weakness Psych Denies anxiety, Denies depression, Denies memory loss Endo Denies cold intolerance, Denies fatigue, Denies heat intolerance, Denies polydipsia and Denies polyuria Aller/Immun Denies wheezing Physical exam (Primary Care) Vital Signs: Last Vital Signs Temp 98.2 F 01/02/25 15:05 Pulse 68 01/02/25 15:05 Resp 16 01/02/25 15:05 BP 131/64 08/25/25 15:05 Pulse Ox 97 01/02/25 15:05 Oxygen Delivery Method Room Air 01/02/25 15:05 BMI result Body Mass Index 40.4 Tobacco/Smoking Status: Tobacco use Status Tobacco use date assessed 01/02/25 01/02/25 15:08 Patient Tobacco Use Status Never used Tobacco 01/02/25 15:03 e-Cigarette/Vaping Use Never Used 01/02/25 15:03 PHQ-9: PHQ-9 Score PHQ-9: Total score 7 01/02/25 15:08 Depression Screening Interpretation: Positive Thrive Assessment: Date of Thrive Assessment Date Thrive assessed 08/12/24 01/02/25 15:03 Currently or been in a relationship where the following occur: No concerns reported Const Other: General: no acute distress and well developed Nutritional Appearance: well nourished Orientation/consciousness: patient oriented x3 HENMT Head: Yes normocephalic and Yes atraumatic Eyes General: appearance normal, both eyes and all related structures Pupils: Equal, round and reactive pupils present EOM: EOMs intact bilaterally Resp Effort & Inspection: normal respiratory effort Auscultation: clear to auscultation bilaterally Cardio Rate: regular rate Rhythm: regular rhythm Heart sounds: S1 normal heart sound present, S2 normal heart sound present, no gallops, no murmurs and no rubs GI Palpation (GI): No Abdominal aortic bruit present, Soft to palpation, nontender, No hepatosplenomegaly present and No Rebound tenderness present Auscultation: normal bowel sounds General: Yes no CVA tenderness Back/Spine/Pelvis Back: no CVA tenderness Cervical Spine: cervical ROM normal and No Cervical spine tenderness Thoracic/Lumbar Spine: thoraco-lumbar ROM normal, No pain with thoraco-lumbar ROM, No thoracic spinal tenderness and No lumbar spinal tenderness Extrem General: Yes normal to inspection, No edema and No calf tenderness Skin General: warm and dry. Normal skin color. Normal skin turgor Neuro General: patient oriented x3, gait normal and no focal neuro deficit Cranial nerves: Yes Equal, round and reactive pupils present Cognition (Neuro): normal cognition Gait exam (Neuro): Normal gait present Sensory Exam: No Sensory deficit (Neuro) Psych Appearance: grossly normal Affect: normal affect Attitude: cooperative Thought process: Normal thought process present Coding Level of Care Code Est Pt Level 3 (90112) Diagnoses Anxiety F41.9 Elevated LDL cholesterol level E78.00 Additional Codes JEANNIE-7 Assessment Billing - JEANNIE-7 Assessment Tool: JEANNIE-7 Assessment 25902 ([id number]) PHQ-9 - 16919 - PHQ-9 Billing: Yes ([id number]) Assessment & Plan Assessment & Plan (1) Anxiety: Code(s): F41.9 - Anxiety disorder, unspecified Category: Medical Plan: Anxiety symptoms are generally well controlled. No depression. PHQ-9 score revealed mild depression. JEANNIE-7 score is normal. Continue current treatment regimen. Routine exercise encouraged. Follow-up in 3 months or sooner with symptoms or concerns. Verbalized understanding and agreed with the plan. (2) Elevated LDL cholesterol level: Code(s): E78.00 - Pure hypercholesterolemia, unspecified Category: Medical Plan: Recent LDL level is slightly elevated, 113, HDL level is slightly low, 35. Triglycerides total cholesterol levels normal. Advised to limit foods high in saturated fat and avoid foods high in trans fat. Routine exercise encouraged. Fast for 10:12 hours, may drink water, and perform lipid panel blood work a few days before next visit. Follow-up in 3 months. Return sooner with symptoms or concerns. Verbalized understanding and agreed with the plan. Orders: Orders Lipid Panel 3 Months E78.00 - Pure hypercholesterolemia, unspecified
[2025-01-02 15:05] VITALS: BP 131/64; PULSE 68; RESP 16; TEMP 36.8; O2SAT 97; BMI 40.4
--- OUTSIDE RECORDS SUMMARY | 2025-01-02 16:41 | XMS_ITS | Clinical Summary ---
Author Organization [address] [facility] Address [address] [place] [address] Phone Care Team Providers Care Machine Puller Name Role Phone Jadon Redding COGNOS BI ADMINISTRATOR Primary Care Provider [phone] Allergies No known active allergies Medications tirzepatide, weight loss, (Zepbound) 2.5 mg/0.5 mL injectionIndicat ions:Class 3 severe obesity due to excess calories without serious comorbidity with body mass index (BMI) of 40.0 to 44.9 in adult ([facility] V24, [facility] V28) Inject 0.5 mL (2.5 [...] (BMI) of 40.0 to 44.9 in adult ([facility] V24, [facility] V28) 10/05/2024 Encounters Date Type Department Care Team Description 10/05/2024 3:30 PM EDT Office Visit Bariatric Surgery [facility] [address] [facility] [address] [place] [address] Diana Zazueta PA Class 3 severe obesity [...] PM EDT Office Visit Bariatric Surgery - [address] [place] [id number] Diana Zazueta PA [address] [place] [phone] Health Maintenance Due Date Last Done Comments Hepatitis B Vaccines (1 of 3 - 19+ 3-dose series) 10/01/2006 Cervical Cancer Screening: P ap Smear 10/01/2008 COVID-19 Vaccine ( - 2023-2 5 season) 2024 05/24/2021, 09/22/2020, 08/25/2020 Depression [...] patient's age to complete this topic Insurance [facility] [address] [place] [address] Care Teams Machine Puller Relationship Specialty Start Date End Date Jadon Redding FNP [address] [place] [address] PCP - General Family Medicine 10/05/24
== END 2025-01-02 15:18 | disposition home or self-care (01) ==
LOC: HO.HMCFM 14:59
PROVIDERS: PCP Nurse Practitioner Family; Visit Provider Nurse Practitioner Family
DX: F41.9 Anxiety disorder, unspecified (principal); E78.00 Pure hypercholesterolemia, unspecified

== ENCOUNTER → 2025-01-02 14:58 | Outpatient (BNVA) | payer OTHER, SELFPAY | PROVIDERS: PCP Nurse Practitioner Family; Visit Provider Nurse Practitioner Family | DX: E78.00 Pure hypercholesterolemia, unspecified (principal); F41.9 Anxiety disorder, unspecified | CPT/HCPCS: 96127 ==

== ENCOUNTER 2025-02-16 10:17 | Outpatient (REF) | payer OTHER, SELFPAY ==
[2025-02-16 17:42] LABS: Bacterial Vaginosis PCR POSITIVE (Negative); Candida Group PCR NOT DETECTED (Not Detect); Candida glab krusei PCR NOT DETECTED (Not Detect); Trichomonas vaginalis PCR NOT DETECTED (Not Detect)
[2025-02-17 04:10] LABS: CT PCR NOT DETECTED (Not Detect.); NG PCR NOT DETECTED (Not Detect.)
== END 2025-02-16 10:18 | disposition home or self-care (01) ==
LOC: HO.LAB 10:17
PROVIDERS: PCP Nurse Practitioner Family; Visit Provider Advanced Practice Midwife
DX: Z01.419 Encounter for gynecological examination (general) (routine) without abnormal findings (principal); N89.8 Other specified noninflammatory disorders of vagina; Z87.42 Personal history of other diseases of the female genital tract; Z12.39 Encounter for other screening for malignant neoplasm of breast; Z20.2 Contact with and (suspected) exposure to infections with a predominantly sexual mode of transmission
CPT/HCPCS: 81515; 87491; 87591

== ENCOUNTER 2025-02-16 10:17 | Outpatient (AMB) | payer OTHER, SELFPAY ==
--- NOTE | 2025-02-16 10:18 | MHC.OFFVIS ---
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 IUD inserted at time of same appointment, unsure which one she has placed in. 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 She [facility] to go to [place] [facility] she thinks about [facility] and she believes it is a progestin 1 she gets light spotting instead of the heavy periods that she used to get but she does not know the name of it specifically and they told her it was good for 5 years. She is happy with this method and wants to make sure that she stays current with it and has it replaced in a timely fashion so she always is protected she is very clear she wants no more children. She has not been sexually active in about a year but she would like to be screened for STIs she was able to lose about 15 lb and that healthier and improved her LDL and hemoglobin A1c in the last year so she believes she is no longer in the prediabetic range. She works out at the gym and she eats well and does well with intermittent fasting by not eating anything after 07:00 at night and not eating until 12 with clock in the day. [facility] Medical History No pertinent past medical history Surgical History H/O removal of cyst History of cholecystectomy Family History Maternal Grandmother Thyroid disorder Brother Thyroid disorder Maternal Aunt Thyroid disorder Maternal Aunt Thyroid disorder Maternal Aunt Thyroid disorder Social History Housing: House Alcohol intake: current Comment: Social Patient Tobacco Use Status: Never used Tobacco e-Cigarette/Vaping Use: Never Used service: No Current occupational status: employed Current occupation: [employer] [place], [place] Current occupational exposures/hazards: No Cognitive needs: No Hearing needs: No Vision needs: No Female Reproductive History Menstrual Age of Menarche: 12 control method: progestin IUCD Total pregnancies: 3 Full term: 1 History of abnormal pap smear: Yes (+HPV ) Physical Exam Vital Signs: Last Vital Signs BP 120/72 02/16/25 10:54 BMI result Body Mass Index 40.3 Const General: healthy appearing, comfortable, no acute distress, well developed and alert Nutritional Appearance: average body habitus Orientation/consciousness: patient oriented x3 Limitations: no limitations HEENT Head: Yes normocephalic Neck Neck: Yes normal visual inspection Chest Chest palpation & inspection: normal inspection of the chest Breast/axilla inspection: normal inspection of the breasts and normal inspection of the axillae Breast/axilla palpation: normal palpation of the breasts and normal palpation of the axillae Resp Effort & Inspection: normal respiratory effort GI Inspection: Yes normal to inspection, No Abdominal wall edema and No distended Palpation (GI): Soft to palpation and nontender Other: External exam within normal limits vagina pink and moist cervix multiparous pink smooth healthy appearing very anterior uterus is small firm retroverted. Good tone with Kegel IUD string is not visible or palpable in cervix. Patient thinks she was able to feel it last week. General: Yes bladder normal to palpation External Female Exam: normal external appearance and normal appearance of the urethra Speculum Exam - Vagina: normal appearance of the vagina, normal palpation and normal vaginal discharge Speculum Exam - Cervix: normal appearance of the cervix, normal palpation and nontender Bimanual exam- vagina & uterus: normal bimanual exam, normal palpation, uterine size normal, bladder normal to palpation, consistency normal, normal palpation, uterine mobility normal, uterine shape normal, No Cervical tenderness present, non-tender and no cervical motion tenderness Bimanual Exam- Adnexa, other: normal adnexae, no masses, normal and No adnexal tenderness Neuro General: patient oriented x3 Assessment & Plan Assessment & Plan (1) Well woman exam with routine gynecological exam: Code(s): Z01.419 - Encounter for gynecological examination (general) (routine) without abnormal findings Category: Medical (2) Breast cancer screening: Code(s): Z12.39 - Encounter for other screening for malignant neoplasm of breast Category: Medical (3) Encounter for screening examination for sexually transmitted disease: Code(s): Z11.3 - Encounter for screening for infections with a predominantly sexual mode of transmission Category: Medical (4) Hx of abnormal cervical Pap smear: Comment: Says HPV positive in past, Code(s): Z87.42 - Personal history of other diseases of the female genital tract Category: Medical (5) Presence of 52 mg levonorgestrel-releasing intrauterine device (IUD): Comment: [facility], string not visible 02/16/2025, discussed replacement parameters and length of time for various IUDs. Code(s): Z97.5 - Presence of (intrauterine) contraceptive device Category: Social Hx Plan -----Discussed in this visit the following: healthy balanced diet, regular and consistent exercise, getting recommended health screens, doing the best she can for her particular health concerns, kegel exercises, pap smear screening and followup recommendations, mammography screening and SBE, normal changes in cycles in her life stage--- . Reviewed her contentment with the progestin IUD she would want it to be replaced so that she maintains the length of lifetime use for control that she has. She wants to be sure she never runs out and does not have options. Discussed that this is probably good for least 5 years and she is [facility] for [facility] was inserted and what the recommendations were at that time, when it comes time to replace if we can not see or feel the string at that time we may do an ultrasound to verify placement of the IUD and there maybe some challenges with replacing.. For now she declines an ultrasound she was able to feel the string last week does not believe it has fallen out. Congratulated on her hard work at getting healthier and improving her health status vis-a-vis her LDL and hemoglobin A1c and exercise and weight loss. Mammograms would start at age 40.. RTC 1 year. Labs ordered for HIV hep B hep C and syphilis. Testing done in the visit the for Pap smear with HPV co-testing and gonorrhea chlamydia trichomoniasis bacterial vaginosis and yeast discussed common findings of BV and yeast and that they do not need to be treated unless symptomatic. Info given on patient portal. Orders: Orders HIV Ab/Ag Today Z01.419 - Encounter for gynecological examination (general) (routine) without abnormal findings, Z11.3 - Encounter for screening for infections with a predominantly sexual mode of transmission, Z12.39 - Encounter for other screening for malignant neoplasm of breast, Z87.42 - Personal history of other diseases of the female genital tract Syphilis Screen Today Z01.419 - Encounter for gynecological examination (general) (routine) without abnormal findings, Z11.3 - Encounter for screening for infections with a predominantly sexual mode of transmission, Z12.39 - Encounter for other screening for malignant neoplasm of breast, Z87.42 - Personal history of other diseases of the female genital tract Bacterial Vaginosis Panel Today N89.8 - Other specified noninflammatory disorders of vagina Pap Smear Today Z01.419 - Encounter for gynecological examination (general) (routine) without abnormal findings, Z87.42 - Personal history of other diseases of the female genital tract Hepatitis B Surface Antigen Today Z01.419 - Encounter for gynecological examination (general) (routine) without abnormal findings, Z11.3 - Encounter for screening for infections with a predominantly sexual mode of transmission, Z12.39 - Encounter for other screening for malignant neoplasm of breast, Z87.42 - Personal history of other diseases of the female genital tract Hepatitis C Antibody Today Z01.419 - Encounter for gynecological examination (general) (routine) without abnormal findings, Z11.3 - Encounter for screening for infections with a predominantly sexual mode of transmission, Z12.39 - Encounter for other screening for malignant neoplasm of breast, Z87.42 - Personal history of other diseases of the female genital tract CT NG by PCR Vag/Cerv Today N89.8 - Other specified noninflammatory disorders of vagina, Z11.3 - Encounter for screening for infections with a predominantly sexual mode of transmission Coding Level of Care Code New Pt Prev Care [id number]([id number] Diagnoses Well woman exam with routine gynecological exam Z01.419 Breast cancer screening Z12.39 Encounter for screening examination for sexually transmitted disease Z11.3 Hx of abnormal cervical Pap smear Z87.42 Presence of 52 mg levonorgestrel-releasing intrauterine device (IUD) Z97.5
[2025-02-16 10:54] VITALS: BP 120/72; BMI 40.3
== END 2025-02-16 11:52 | disposition home or self-care (01) ==
PROVIDERS: PCP Nurse Practitioner Family; Visit Provider Advanced Practice Midwife
DX: Z01.419 Encounter for gynecological examination (general) (routine) without abnormal findings (principal); Z12.39 Encounter for other screening for malignant neoplasm of breast; Z11.3 Encounter for screening for infections with a predominantly sexual mode of transmission; Z87.42 Personal history of other diseases of the female genital tract; Z97.5 Presence of (intrauterine) contraceptive device
CPT/HCPCS: 99385; 99459

== ENCOUNTER 2025-02-16 11:47 | Outpatient (REF) | payer OTHER, SELFPAY ==
[2025-02-17 08:30] LABS: Syphilis Screen Nonreactive (Nonreactive)
[2025-02-17 08:47] LABS: HBsAGNum1 0.30 S/CO (0.00-0.99); HIV Num 1 0.09 S/CO (0.00-0.99); Hepatitis B Surface Antigen Negative (Negative); ~HepC Num1 0.11 S/CO (0.00-0.79); ~Hepatitis C Antibody Nonreactive (Nonreactive)
== END 2025-02-16 11:48 | disposition home or self-care (01) ==
LOC: HO.HHCL 11:47
PROVIDERS: PCP Nurse Practitioner Family; Visit Provider Advanced Practice Midwife
DX: Z01.419 Encounter for gynecological examination (general) (routine) without abnormal findings (principal); Z01.84 Encounter for antibody response examination; N89.8 Other specified noninflammatory disorders of vagina; Z97.5 Presence of (intrauterine) contraceptive device; Z87.42 Personal history of other diseases of the female genital tract; Z12.39 Encounter for other screening for malignant neoplasm of breast; Z11.59 Encounter for screening for other viral diseases; Z11.4 Encounter for screening for human immunodeficiency virus [HIV]
CPT/HCPCS: 36415; 86780; 86803; 87340; 87389

== ENCOUNTER 2025-02-16 13:02 | Outpatient (REF) | payer OTHER, SELFPAY | END 2025-02-16 13:03 | disposition home or self-care (01) | LOC: HO.LAB 13:02 | PROVIDERS: Visit Provider Advanced Practice Midwife | DX: Z13.89 Encounter for screening for other disorder (principal) ==

== ENCOUNTER 2025-02-16 13:02 | Outpatient (REF) | payer OTHER, SELFPAY | END 2025-02-16 13:03 | disposition home or self-care (01) | LOC: HO.LNP 13:02 | PROVIDERS: Visit Provider Advanced Practice Midwife | DX: Z01.419 Encounter for gynecological examination (general) (routine) without abnormal findings (principal); Z87.42 Personal history of other diseases of the female genital tract | CPT/HCPCS: 87626; 88175 ==

== ENCOUNTER 2025-03-09 15:16 | Outpatient (AMB) | payer OTHER, SELFPAY ==
[2025-03-09 15:28] VITALS: BP 110/62
--- NOTE | 2025-03-09 15:28 | MHC.OFFVIS ---
Vital Signs 03/09/25 15:28 BP 110/62 Blood Pressure Location Lt brachial Position Sitting Intake Visit Reasons: Colposcopy Wealth Management Consultant Required: No Allergies No Known Allergies (No Known Allergies*) Allergy (Verified 03/09/25 15:29) Medication List - Last Reconciled 03/09/25 by Camille Aguirre LPN hydroxyzine HCl 25 mg PO TID PRN tirzepatide (weight loss) (Zepbound) mg subcut Is last menstrual period known: Yes Last menstrual period: 02/19/25 Post menopausal: No Do you need a note to return to daycare/school/sports/work: No HPI Comments Details: Presenting for abnormal Pap smear showing the following: General Category: Epithelial cell abnormality. Adequacy: Endocervical component present. Interpretation: Low grade squamous intraepithelial lesion (LSIL). Coccobacilli consistent with shift in vaginal elisa. Reparative changes present. HPV High Risk: Positive HPV Genotyping 16: Negative HPV Genotyping 18: Positive [facility] Medical History No pertinent past medical history Surgical History H/O removal of cyst History of cholecystectomy Family History Maternal Grandmother Thyroid disorder Brother Thyroid disorder Maternal Aunt Thyroid disorder Maternal Aunt Thyroid disorder Maternal Aunt Thyroid disorder Father Additional heart attack (inferolateral wall) Sister Lung cancer metastatic to brain Social History Housing: House Alcohol intake: current Comment: Social Patient Tobacco Use Status: Never used Tobacco e-Cigarette/Vaping Use: Never Used service: No Current occupational status: employed Current occupation: [employer], [place], [place] Current occupational exposures/hazards: No Cognitive needs: No Hearing needs: No Vision needs: No Female Reproductive History Menstrual Age of Menarche: 12 Date of last menstrual period: 02/19/25 control method: progestin IUCD Date of last pap smear: 02/17/25 History of abnormal pap smear: Yes (LGSIL) History of STI: No Review of Systems Const All systems reviewed & are unremarkable except as noted in HPI and below Reports as per HPI and Reports no additional complaints GI Reports no additional complaints Reports no additional complaints Physical Exam Vital Signs: Last Vital Signs BP 110/62 03/09/25 15:28 Office Procedures Colposcopy Colposcopy: Pre-Procedure Counseling: Before beginning the procedure, I conducted comprehensive counseling with the patient. We thoroughly discussed the procedure itself, including its details, alternatives, and all associated risks. This included but not limited to the following complications such as bleeding, infection, and injury to the vagina, bladder, and vessels, as well as the potential need for transfusion with all its associated risks. Subsequently, the patient sign the consent. Pap smear result: LSIL. Urine test in office = Negative Procedure: During the procedure, the following steps were performed: A speculum was inserted, and acetic acid was applied. Colposcopy was conducted, allowing visualization of the transformation zone. Acetowhite lesions were identified at the 6+ 12+ 1+3 o'clock position. Cervical biopsies were obtained from the 6+ 12+ 1+3 o'clock position, followed by an endocervical curettage (ECC). Vaginoscopy of the upper vagina revealed no evidence of aceto-white lesions. Hemostasis was achieved using Monsel solution, and the patient tolerated the procedure well. Post-Procedure Instructions: The patient was advised to promptly contact the office or the after hours answering service or go to the emergency room if experiencing a temperature exceeding 100.4?F, abdominal pain, nausea/vomiting, or bleeding. Additionally, the patient was instructed to abstain from vaginal intercourse and bathtub use. The patient confirmed understanding of these instructions. Discharge Instructions: The patient was instructed to schedule a follow-up appointment in 2 weeks for further evaluation and management. Please note that this note was generated using a voice recognition program, and errors may have occurred during battalion fire chief. 53143-Trieteqbw of cervix including upper vagina with biopsy and ECC Procedure code (CPT) selection complete Results AMB Test Urine AMB Test Urine Negative Last Edit by Camille Aguirre LPN on 03/09/25 15:38 Results Reviewed Results Reviewed: Laboratory Last Values [facility]st Clinic Negative 03/09/25 15:38 Assessment & Plan Assessment & Plan (1) LGSIL on Pap smear of cervix: Comment: HPV positive/HPV 18 positive Code(s): R87.612 - Low grade squamous intraepithelial lesion on cytologic smear of cervix (LGSIL) Category: Medical Plan: Discussed with the patient the result of her abnormal pap, its significance, risk of progression, persistence, and regression. the false positive/negative rate of a Pap smear as a screening test in detecting cervical cancer and the indication for a diagnostic test -colposcopy, biopsy, endocervical curettage. The patient verbalized understanding and agreed with the plan, all questions answered. Colposcopy, biopsy /ECC done, see procedure note Orders: Orders AMB Colposcopy Today R87.612 - Low grade squamous intraepithelial lesion on cytologic smear of cervix (LGSIL) Coding Level of Care Code Procedure Only Diagnoses LGSIL on Pap smear of cervix R87.612 CPT Codes Colposcopy - CPT: 21531-Hnqdbwwwv of cervix including upper vagina with biopsy and ECC ([id number])
--- OUTSIDE RECORDS SUMMARY | 2025-03-09 17:57 | XMS_ITS | Clinical Summary ---
Author Organization [address] [facility] Address [address] [place] [address] Phone Care Team Providers Care Rn Rehab Name Role Phone Jadon Redding [employer] Primary Care Provider [phone] Allergies No known active allergies Medications hydrOXYzine HCL (ATARAX) 25 mg tablet Take 1 tablet (25 mg total) by mouth 3 (three) times a day if needed for anxiety. 5 Active nitrofurantoin, macrocrystal-mo nohydrate, (MACROBID) 100 mg capsule Take 1 capsule (100 mg total) by mouth every 12 (twelve) hours. for 5 days 5 Active sulfamethoxazol e-trimethoprim (BACTRIM DS,SEPTRA DS) 800-160 mg per tablet take 1 tablet by mouth 2 times daily for 3 days 5 Active tirzepatide, weight loss, (Zepbound) 5 mg/0.5 mL injection Inject 0.5 mL (5 mg total) under the skin every 7 (seven) days for 28 days. 2 mL 5 04/05/20 25 Active tirzepatide, weight loss, (Zepbound) 5 mg/0.5 mL injection Inject 0.5 mL (5 mg total) under the skin every 7 (seven) days for 28 days. 2 mL 5 03/06/20 25 Discontinu ed(Reorder ) Active Problems Problem Noted Date Diagnosed Date Class 3 severe obesity due t o excess calories without serious comorbidity with body mass index (BMI) of 40.0 to 44.9 in adult (CMS/HCC V24, CMS/HCC V28) 10/05/2024 Social History Tobacco Use Types Packs/Day Years [...] Care Team (Late st Contact Info) Description 06/26/2025 1:00 PM EST Office Visit Bariatric Surgery - [address] [place] [address] Diana Zazueta, [address] [phone] Health Maintenance Due Date Last Done Comments Hepatitis B Vaccines (1 of 3 - 19+ 3-dose series) 10/01/2006 Cervical Cancer Screening: P ap Smear 10/01/2008 HPV Vaccines (1 - 3-dose SCD M series) 10/01/2014 Depression Screening 05/11/2024 Cholesterol Screening (Lipid Panel) 09/03/2024 HIV Screening 09/03/2024 Hepatitis C Screening 09/03/2024 Social Influencers of Health Screening 09/03/2024 COVID-19 Vaccine (4 - 2024-2 6 season) 2025 05/24/2021, 09/22/2020, 08/25/2020 Influenza Vaccine (#1) 2025 DTaP,Tdap,and Td Vaccines (3 - Td or Tdap) 08/12/2034 08/12/2024, 01/03/2014 RSV Immunization Adult Patients (1 - 1-dose 75+ series) 10/01/2062 HIB Vaccines Aged Out No longer eligi [...] patient's age to complete this topic Insurance [facility] Care Teams Rn Rehab Relationship Specialty Start Date End Date Jadon Redding FNP [address] [place] [phone] PCP - General Family Medicine 10/05/24
== END 2025-03-09 16:16 | disposition home or self-care (01) ==
LOC: HO.HWS 15:17
PROVIDERS: PCP Nurse Practitioner Family; Visit Provider Obstetrics & Gynecology
DX: R87.612 Low grade squamous intraepithelial lesion on cytologic smear of cervix (LGSIL) (principal)
CPT/HCPCS: 57454

== ENCOUNTER 2025-03-09 15:16 | Outpatient (REF) | payer OTHER, SELFPAY | END 2025-03-09 15:17 | disposition home or self-care (01) | LOC: HO.LNP 15:16 | PROVIDERS: PCP Nurse Practitioner Family; Visit Provider Obstetrics & Gynecology | DX: R87.612 Low grade squamous intraepithelial lesion on cytologic smear of cervix (LGSIL) (principal) | CPT/HCPCS: 57454; 88305; 88341; 88342 ==

== ENCOUNTER 2025-03-20 13:46 | Outpatient (AMB) | payer OTHER, SELFPAY ==
--- NOTE | 2025-03-20 13:55 | A.OFFVIS_ITS ---
Intake Visit Reasons: Colpo f/u Allergies No Known Allergies (No Known Allergies*) Allergy (Verified 03/09/25 15:29) HPI Comments Details: Presenting post colpo for follow-up. The patient is doing well with no complaints. The pathology showed the following: A. Cervix, 1 o'clock, biopsy: - Markedly atypical squamoproliferation, at least high grade squamous intraepithelial lesion involving glands. - Background markedly inflamed cervical transformation zone mucosa. B. Cervix, 3 o'clock, biopsy: - Mildly inflamed squamous mucosa with reactive changes. - No endocervical epithelium identified. C. Cervix, 6 o'clock, biopsy: - High-grade squamous intraepithelial lesion (NATALIE 3). - Background markedly inflamed cervical transformation zone mucosa. D. Cervix, 12 o'clock, biopsy: - Markedly atypical squamoproliferation, at least high grade squamous intraep ithelial lesion involving glands. - Background markedly inflamed cervical transformation zone mucosa. E. Endocervix, curettage: Inflamed endocervical and cervical transformation zone mucosa with reactive changes. Comment: The findings in parts A and D are worrisome for invasive squamous cell carcinoma. COUNTS INCLUDE 234 BEDS AT THE [facility] Medical History No pertinent past medical history Surgical History H/O removal of cyst History of cholecystectomy Family History Maternal Grandmother Thyroid disorder Brother Thyroid disorder Maternal Aunt Thyroid disorder Maternal Aunt Thyroid disorder Maternal Aunt Thyroid disorder Father Additional heart attack (inferolateral wall) Sister Lung cancer metastatic to brain Social History Housing: House Alcohol intake: current Comment: Social Patient Tobacco Use Status: Never used Tobacco e-Cigarette/Vaping Use: Never Used service: No Current occupational status: employed Current occupation: [employer], [place] [employer], [place] Current occupational exposures/hazards: No Cognitive needs: No Hearing needs: No Vision needs: No Female Reproductive History Menstrual Age of Menarche: 12 Review of Systems Const All systems reviewed & are unremarkable except as noted in HPI and below Reports as per HPI and Reports no additional complaints GI Reports no additional complaints Reports no additional complaints Assessment & Plan Assessment & Plan (1) Squamous cell carcinoma of cervix: Comment: NATALIE 3 suspicious of invasive squamous cell carcinoma Code(s): C53.9 - Malignant neoplasm of cervix uteri, unspecified Category: Medical Plan: Discussed with the patient the results of the pathology showing NATALIE 3 suspicious of invasive screw CEA squamous cell carcinoma, referral to [facility] mobile paint specialist Oncology placed. Appointment scheduled for the patient on 03/30/2025 at 11:[address] Meza, and the patient is aware. Instructed the patient to call our office back in case a referral appointment is not scheduled, missed or canceled so that we will assist on rescheduling another appointment, the patient verbalized understanding agreed with the plan. Orders: Referrals Gynecologic Oncology Referral C53.9 - Malignant neoplasm of cervix uteri, unspecified Coding Level of Care Code Est Pt Level 3 (95061) Diagnoses Squamous cell carcinoma of cervix C53.9
--- OUTSIDE RECORDS SUMMARY | 2025-03-20 15:58 | XMS_ITS | Clinical Summary ---
Author Organization 175 [facility] Address [address] [place] [address] Phone Care Team Providers Care Reimbursement Auditor Name Role Phone Jadon Redding SCIENTIST ENGINEER Primary Care Provider [phone] Allergies No known active allergies Medications hydrOXYzine [...] PM EST Office Visit Bariatric Surgery - [address] [place] [address] Diana Zazueta, [address] [phone] Health Maintenance Due Date Last Done Comments [...] patient's age to complete this topic Insurance [facility] Care Teams Reimbursement Auditor Relationship Specialty Start Date End Date Jadon Redding FNP [address] [place] [phone] PCP - General Family Medicine 10/05/24
== END 2025-03-20 14:14 | disposition home or self-care (01) ==
LOC: HO.HWS 13:46
PROVIDERS: PCP Nurse Practitioner Family; Visit Provider Obstetrics & Gynecology
DX: C53.9 Malignant neoplasm of cervix uteri, unspecified (principal)
CPT/HCPCS: 99213

== ENCOUNTER 2025-03-25 10:36 | Outpatient (REF) | payer OTHER, SELFPAY ==
[2025-03-25 11:32] LABS: Appearance Urine Turbid; Glucose Urine UA Negative (Negative); PH 6.0 (5.0-9.0); Specific Gravity - Urine 1.025 (1.005-1.025); UMIC TRIGGER UACC YES
[2025-03-25 11:47] LABS: UACC Culture Trigger YES
[2025-03-25 11:48] LABS: Cholesterol 171 mg/dL (<200); HDL Cholesterol 43 mg/dL (>40); Triglycerides 83 mg/dL (<150)
== END 2025-03-25 10:37 | disposition home or self-care (01) ==
LOC: HO.LAB 10:36
PROVIDERS: PCP Nurse Practitioner Family; Visit Provider Nurse Practitioner Family
DX: E78.00 Pure hypercholesterolemia, unspecified (principal)
CPT/HCPCS: 36415; 80061; 81001; 87086; 87147

== ENCOUNTER 2025-03-28 12:35 | Outpatient (AMB) | payer OTHER, SELFPAY ==
--- NOTE | 2025-03-28 12:38 | MHC.PC.OV ---
Vital Signs 03/28/25 12:44 Height 5 ft 6 in Weight 232 lb 4 oz BMI 37.5 BP 129/64 Blood Pressure Location Rt brachial Position Sitting Respiration 16 Pulse 77 Pulse Source Pulse Oximeter Temp 98.0 F Temp Source Oral Pulse Oximetry (%) 99 Oxygen Delivery Method Room Air Intake Visit Reasons: 3 mos elevated LDL, anxiety Intake Note: patient here for 3 month follow up on elevated LDL and anxiety Bookmaker Map Required: No Is last menstrual period known: Yes Last menstrual period: 02/25/25 Post menopausal: No Patient : No Allergies No Known Allergies (No Known Allergies*) Allergy (Verified 03/28/25 12:52) Medication List - Last Reconciled 03/28/25 by Jadon Redding CNP hydroxyzine HCl 25 mg PO TID PRN tirzepatide (weight loss) (Zepbound) mg subcut Tobacco use date assessed: 03/28/25 Dental Screening Dental Screen Date: 03/28/25 Did you have a dental visit in the last 12 months?: Yes Did you have a dental problem in the last 6 months where you did not have access to dental care?: No Was dental information given to patient?: Patient has dentist HPI HPI Comments History of Present Illness Details 39-year-old female presents for elevated LDL and anxiety follow-up. She admits to taking hydroxyzine as prescribed without adverse reactions. She notes that her mood has been better. She has been receiving in-person psychotherapy once weekly. She notes that she has been making healthy lifestyle changes. She offers no complaints and denies acute symptoms at this time. [facility] Medical History No pertinent past medical history Surgical History H/O removal of cyst History of cholecystectomy Family History Maternal Grandmother Thyroid disorder Brother Thyroid disorder Maternal Aunt Thyroid disorder Maternal Aunt Thyroid disorder Maternal Aunt Thyroid disorder Father Additional heart attack (inferolateral wall) Sister Lung cancer metastatic to brain Social History Housing: House Alcohol intake: current Comment: Social Patient Tobacco Use Status: Never used Tobacco e-Cigarette/Vaping Use: Never Used Patient : No service: No Current occupational status: employed Current occupation: [employer], [place], [place] Current occupational exposures/hazards: No Cognitive needs: No Hearing needs: No Vision needs: No Female Reproductive History Menstrual Age of Menarche: 12 Date of last menstrual period: 02/25/25 Questionnaire PHQ-9 Over the last 2 weeks, how often have you been bothered by any of the following problems? 1. Little interest or pleasure in doing things: several days 2. Feeling down, depressed, or hopeless: not at all 3. Trouble falling or staying asleep, or sleeping too much: several days 4. Feeling tired or having little energy: several days 5. Poor appetite or overeating: not at all 6. Feeling bad about yourself - or that you are a failure or have let yourself or your family down: not at all 7. Trouble concentrating on things, such as reading the newspaper or watching television: more than half the days 8. Moving or speaking so slowly that other people could have noticed. Or the opposite - being so fidgety or restless that you have been moving around a lot more than usual: not at all 9. Thoughts that you would be better off or of hurting yourself in some way: not at all Total score: 5 Depression Screening Interpretation: Positive Depression Screening Done: Yes 05941 - PHQ-9 Billing: Yes Source: Developed by Drs. Sina Suh, Margareth Gardner, Jhonny Edwards and colleagues, with an educational debra from [employer]. Thrive Questionnaire Date Thrive assessed: 08/12/24 I am a: Patient What is your living situation today?: I have a steady place to live Within the past 12 months, did the food you bought not last and you didn't have the money to get more?: Never true Within the past 12 months, did you worry whether your food would run out before you got money to buy more?: Never true Do you have trouble paying for medicines?: No Do you have trouble getting transportation to medical appointments?: No Do you have trouble paying your heating and electricity bill?: No Do you have trouble taking care of your child, family member or friend?: No Do you have trouble with day-to-day activities such as bathing, preparing meals, shopping, managing finances, etc.?: No Are you currently unemployed and looking for a job?: No Are you interested in more education?: No Please select the resources that you would like help with: None Currently or been in a relationship where the following occur: No concerns reported THRIVE Score: 0 JEANNIE-7 AMB Questionnaire JEANNIE-7 Date JEANNIE - 7 assessed: 03/28/25 Feeling nervous, anxious, or on edge: 1 = Several days Not being able to stop or control worryin = Several days Worrying too much about different things: 1 = Several days Trouble relaxin = Several days Being so restless that it is hard to sit still: 1 = Several days Becoming easily annoyed or irritable: 0 = Not at all Feeling afraid as if something awful might happen: 1 = Several days Total JEANNIE-7 score (0-4 normal; 5-9 mild; 10-14 moderate; 15-21 severe): 6 Source: Developed by Drs. Sina Suh, Margareth Gardner, Jhonny Edwards and colleagues, with an educational debra from [employer]. JEANNIE-7 Assessment Billing JEANNIE-7 Assessment Tool: JEANNIE-7 Assessment 74893 Review of Systems Const Details: Const Denies chills, Denies fatigue, Denies fever(s), Denies headache(s) and Denies weakness ENT Denies dizziness and Denies headache(s) Card Denies chest pain, Denies lightheadedness, Denies dyspnea and Denies other (Palpitations) Resp Denies cough, Denies dyspnea, Denies wheezing and Denies other ( shortness of breath) GI Denies abdominal pain, Denies melena, Denies hematochezia, Denies change in bowel habits, Denies dyspepsia and Denies nausea Denies hematuria and Denies dysuria Musc Denies abnormal gait, Denies myalgias, Denies arthralgias, Denies numbness and Denies tingling Skin/Breast Denies rash, Denies unusual bruising and Denies wounds Neuro Denies abnormal gait, Denies dizziness, Denies headache(s), Denies memory loss, Denies numbness, Denies Sensory deficit (Neuro), Denies tingling and Denies weakness Psych Denies anxiety, Denies depression, Denies memory loss Endo Denies cold intolerance, Denies fatigue, Denies heat intolerance, Denies polydipsia and Denies polyuria Aller/Immun Denies wheezing Physical exam (Primary Care) Vital Signs: Last Vital Signs Temp 98.0 F 03/28/25 12:44 Pulse 77 03/28/25 12:44 Resp 16 03/28/25 12:44 BP 129/64 03/28/25 12:44 Pulse Ox 99 03/28/25 12:44 Oxygen Delivery Method Room Air 03/28/25 12:44 BMI result Body Mass Index 37.5 Tobacco/Smoking Status: Tobacco use Status Tobacco use date assessed 03/28/25 03/28/25 12:47 Patient Tobacco Use Status Never used Tobacco 03/28/25 12:42 e-Cigarette/Vaping Use Never Used 03/28/25 12:42 PHQ-9: PHQ-9 Score PHQ-9: Total score 5 03/28/25 12:50 Depression Screening Interpretation: Positive Thrive Assessment: Date of Thrive Assessment Date Thrive assessed 08/12/24 03/28/25 12:42 Currently or been in a relationship where the following occur: No concerns reported Const Other: General: no acute distress and well developed Nutritional Appearance: well nourished Orientation/consciousness: patient oriented x3 HENMT Head: Yes normocephalic and Yes atraumatic Eyes General: appearance normal, both eyes and all related structures Pupils: Equal, round and reactive pupils present EOM: EOMs intact bilaterally Resp Effort & Inspection: normal respiratory effort Auscultation: clear to auscultation bilaterally Cardio Rate: regular rate Rhythm: regular rhythm Heart sounds: S1 normal heart sound present, S2 normal heart sound present, no gallops, no murmurs and no rubs Extrem General: Yes normal to inspection, No edema and No calf tenderness Skin General: warm and dry. Normal skin color. Normal skin turgor Neuro General: patient oriented x3, gait normal and no focal neuro deficit Cranial nerves: Yes Equal, round and reactive pupils present Cognition (Neuro): normal cognition Gait exam (Neuro): Normal gait present Sensory Exam: No Sensory deficit (Neuro) Psych Appearance: grossly normal Mood: Better Affect: Mood congruent Attitude: cooperative Thought process: Normal thought process present Coding Level of Care Code Est Pt Level 3 (32337) Diagnoses Elevated LDL cholesterol level E78.00 Anxiety F41.9 Additional Codes JEANNIE-7 Assessment Billing - JEANNIE-7 Assessment Tool: JEANNIE-7 Assessment 23163 ([id number]) PHQ-9 - 13752 - PHQ-9 Billing: Yes ([id number]) Assessment & Plan Assessment & Plan (1) Elevated LDL cholesterol level: Code(s): E78.00 - Pure hypercholesterolemia, unspecified Category: Medical Plan: Recent LDL level is slightly elevated, 112. Triglycerides, total cholesterol, and HDL levels are normal. Advised to limit foods high in saturated fat and avoid foods high trans fat. Routine exercise encouraged. Will monitor lipid panel level annually or if clinically indicated. Follow-up for transfer of care with a new provider in 2-3 months. Return sooner with symptoms or concerns. Verbalized understanding and agreed with the plan. (2) Anxiety: Code(s): F41.9 - Anxiety disorder, unspecified Category: Medical Plan: Her mood has been better. PHQ-9 score revealed while anxiety. Continue current treatment regimen. Continue follow-up with therapist. Verbalized understanding and agreed with the plan.
[2025-03-28 12:44] VITALS: BP 129/64; PULSE 77; RESP 16; TEMP 36.7; O2SAT 99; BMI 37.5
== END 2025-03-28 13:10 | disposition home or self-care (01) ==
LOC: HO.HMCFM 12:35
PROVIDERS: PCP Nurse Practitioner Family; Visit Provider Nurse Practitioner Family
DX: E78.00 Pure hypercholesterolemia, unspecified (principal); F41.9 Anxiety disorder, unspecified

== ENCOUNTER → 2025-03-28 12:35 | Outpatient (BNVA) | payer OTHER, SELFPAY | PROVIDERS: PCP Nurse Practitioner Family; Visit Provider Nurse Practitioner Family | DX: E78.00 Pure hypercholesterolemia, unspecified (principal); F41.9 Anxiety disorder, unspecified | CPT/HCPCS: 96127 ==